=== PATIENT | female | born 1970 | race Caucasian/White ===

== ENCOUNTER → 2016-12-05 | Outpatient (CLI) | payer BC ==
--- NOTE | 2016-12-09 17:03 | DI ---
PELVIC ULTRASOUND, 12/05/2016 9:03 AM Clinical History: Menometrorrhagia. Previous Exam: None at this facility. Technique: Transvaginal scans are performed. The uterus measures approximately 50 x 65 x 80 mm. There is a bulbous appearing area in the posterior wall of the body of the uterus that has some punctate calcifications within it and this would be con sistent with a fibroid that measures approximately 25 x 25 x 30 mm. The central uterine stripe is thi ckened and measures 13 mm. There is a multiloculated cyst of the right ovary or there are 2 contiguou s cysts present. One component has the appearance of a simple cyst in the other component has the felipe earance of containing small nodules along the wall of the cyst. I was performing the procedure at the time of this exam and was not available to watch this study real-time. No color Doppler ultrasound o f this area was performed by the technologist. The remainder of the right ovary has a normal appearan ce. The left ovary is normal. There are no fluid collections or masses. Readin. There is either a bilocular cyst or there are 2 separate cysts that are contiguous in the right o vary. Once it has the appearance of a simple cyst and the other side has the appearance of a cystic l esion filled with multiple small nodules along the wall. A repeat ultrasound is recommended so that I could be present and monitor this study. This can be performed at the patient's convenience at no ad ditional charge. 2. There is a 25 x 25 x 30 mm fibroid along the posterior wall of the body of the uterus. The centra l uterine stripe measures 13 mm. 3. The left ovary is normal.
== END ==
LOC: US 08:38
PROVIDERS: ATTEND Family Medicine
DX: N92.1 Excessive and frequent menstruation with irregular cycle (principal); D25.9 Leiomyoma of uterus, unspecified; N83.201 Unspecified ovarian cyst, right side
CPT/HCPCS: 76830

== ENCOUNTER → 2016-12-13 | Outpatient (CLI) | payer BC ==
--- NOTE | 2016-12-14 15:41 | DI ---
PELVIC ULTRASOUND, 12/13/2016 2:44 PM Clinical History: Followup of a complex cyst of the right ovary. Previous Exam: 12/05/2016. Technique: Transvaginal scans are performed. The uterus measures approximately 55 x 65 x 85 mm the central uterine stripe measures 15 mm. The left ovary is unremarkable. The right ovary has 3 cystic structures. The largest simple cyst measures felipe roximately 25 mm in diameter. There is a second smaller cyst that is contiguous with and may actually be a part of the complex cyst. The complex component measures approximately 15 x 30 x 35 mm. Multipl e lobulated solid structures are visible within this complex cyst and color Doppler ultrasound shows that there is a faint vascularity within it. There are no fluid collections or masses. Readin. There is a roughly 15 x 30 x 35 mm complex cyst of the right ovary that has a multilobulated britton d component that is adherent to the wall of the cyst. This component does demonstrate vascularity wit hin it. There is a much smaller 10 mm cyst that is contiguous with the complex cyst and may actually be part of that complex. There is a third simple cyst that measures approximately 25 mm in diameter i n the right ovary. 2. The uterus is unremarkable in texture but does show thickening of the central uterine stripe at 1 5 mm. The left ovary is normal.
== END ==
LOC: US 14:42
PROVIDERS: ATTEND Family Medicine
DX: N83.291 Other ovarian cyst, right side (principal)
CPT/HCPCS: 76830

== ENCOUNTER 2016-12-18 12:37 | Emergency (ER) | payer BC ==
[2016-12-18] MEDS ORDERED: NORMAL SALINE 10 ML SYRINGE FLUSH IVP PRN (12:56)
[2016-12-18] MEDS ORDERED: fentaNYL Inj 100 MCG/2 ML VIAL IVP ONE ×2 (12:56→14:00)
[2016-12-18] MEDS ORDERED: Sodium Chloride 0.9% 1,000 ML PRIMARY IV ONE (12:56)
[2016-12-18] MEDS ORDERED: KETOROLAC 30 MG/1 ML VIAL IVP ONE (12:56)
[2016-12-18] MEDS ORDERED: ONDANSETRON 4 MG/2 ML VIAL IVP ONE (12:56)
[2016-12-18 13:08] LABS: AMYLASE 42 U/L (30-110)
--- NOTE | 2016-12-18 13:09 | PDOC ---
Abdomen/Flank HPI - General Chief Complaint: Abdomen Pain Stated Complaint: RIGHT LOWER ABDOMINAL PAIN, KNOW DX OVARIAN CYST Date Seen by Provider: 12/18/16 Time Seen by Provider: 12:55 Source: POSITIVE: Patient Exam Limitations: POSITIVE: No limitations Nurse's Notes Reviewed & Considered: Yes - History of Present Illness Initial Comments: The patient is a 46-year-old female who presents to the emergency department with right lower abdominal/pelvic pain. She was recently diagnosed with a right -sided complex ovarian cyst and is in the process of being evaluated further. In addition she has been having complaints of menstrual bleeding for the past month. Starting yesterday she had onset of right lower quadrant/pelvic pain that radiates to her right flank. She is currently rating her pain about a 9 out of 10. In addition she states that she feels lightheaded and dizzy. She had initially gone to the clinic and was seen by Dr. Santana. An IV was started and she received a fluid bolus and labs were drawn. It was apparent that the patient was experiencing considerable pain and it was felt that she would benefit for further treatment and evaluation to the emergency room. The patient subsequently is brought here. She denies any recent fevers or chills, nausea or vomiting. She reports frequent urination however denies dysuria. She does not have any vaginal discharge other than continuous bleeding with clots for the past month. She does have a history of kidney stones. She has had prior cholecystectomy, and shoulder surgery. She still has her appendix and both ovaries/uterus. - Patient Home Medications Home Medications: Home Medications Albuterol Neb Soln 0.083% 1 unit NEB [id number] #1 box 07/04/15 Albuterol/Ipratrop Neb Soln [Duoneb Neb Soln] 1 vial NEB [id number] #1 box 08/29 Pramipexole Di-HCl [Mirapex] 2 tab PO QHS #60 tab 10/01/16 Amitriptyline HCl 1 tab PO QHS #30 tab 10/14/16 Gabapentin 3 cap PO QHS #90 cap 10/14/16 Levocetirizine Dihydrochloride [Xyzal] 5 mg ORAL QD #30 tab 10/14/16 Sumatriptan 20 mg NS PRN spray 10/14/16 Verapamil HCl [Calan Sr] 180 mg PO DAILY tab 10/14/16 Tramadol HCl 1 - 2 tab PO Q6H #130 tab 11/20/16 Albuterol Sulfate [Ventolin Hfa] 1 - 2 puff INH Q4-6H PRN puff 11/25/16 Paroxetine HCl 40 mg PO DAILY #30 tab 11/25/16 0.9 % Sodium Chloride [Sodium Chloride] 2 l IV ONCE #1 bag 12/18/16 Hydrocodone/Acetaminophen [[place] 7.5-325 Tablet] 1 - 2 each PO Q6H PRN #20 tablet 12/18/16 Mometasone/Formoterol [Dulera 100 Mcg/5 Mcg Inhaler] 13 gm IH BID 12/18/16 - Patient Allergies Allergies/Adverse Reactions: Allergies Allergy/AdvReac Type Severity Reaction Status Date / Time hydromorphone HCl Allergy SHORTNESS Verified 12/18/16 12:49 [From Dilaudid] OF BREATH codeine [Codeine] AdvReac Intermediate NAUSEA Verified 12/18/16 12:49 levofloxacin AdvReac Intermediate VOMITING Verified 12/18/16 12:49 oxycodone HCl [From Percocet] AdvReac Intermediate NAUSEAA Verified 12/18/16 12: 49 VOMITING ropinirole HCl [From Requip] AdvReac Intermediate VOMITING Verified 12/18/16 12: 49 diphenhydramine HCl AdvReac ITCHING Verified 12/18/16 12:49 [From Benadryl] ketorolac tromethamine AdvReac ITCHING Verified 12/18/16 12:49 [From Toradol] metoclopramide HCl AdvReac ITCHING Verified 12/18/16 12:49 [From Reglan] Past Medical History - heen HEENT History: Denies History Additional HEENT History: RECURRING SINUS INFECTIONS Cardiovascular History: Hyperlipidemia Respiratory History: Asthma Gastrointestinal History: Gallbladder Disease Genitourinary History: Kidney Stones Endocrine History: Denies History Musculoskeletal History: Back Pain Prosthesis or Implant: No Additional Musculoskeletal History: RESTLESS LEG Neurological History: Migraines Additional Neurological History: CONCUSSION (10/27&10/30), RESTLESS LEG SYNDROME Blood Disorders: Denies History Psychiatric History: Depression History of Sexually Transmitted Diseases: No Cancer History: Denies History History of MDRO: No History of Other Communicable Diseases: Yes (MONO IN 2013) Alcohol Use: Rarely Substance Use Type: None Previous Surgical History: Yes Type / Date of Surgery: c section, left shoulder, LEFT CARPAL TUNNEL, RIGHT KNEE Anesthesia Reactions: No (PONV) Malignant Hyperthermia: No Significant Family History: Asthma Past Medical History Reviewed: Reviewed - No Changes ROS - Limitations ROS Limitations: No Limitations Constitution: DENIES: Chills, Fever Cardiovascular: REPORTS: Denies Cardiac Symptoms Respiratory: REPORTS: Denies Resp Symptoms Neurological: REPORTS: Denies Neuro Symptoms Gastrointestinal: DENIES: Nausea, Vomitting, Diarrhea Musculoskeletal: REPORTS: Denies MS Symptoms Genitourinary: REPORTS: Flank Pain, Other (Vaginal bleeding 1 month) Eyes: REPORTS: Denies Symptoms ENT: REPORTS: Denies Symptoms Skin: DENIES: Rash Abdominal/Flank Pain PE - General Appearance General Appearance: POSITIVE: Alert, Cooperative, No Acute Distress - HEENT HEENT: POSITIVE: Head Inspection Nml, Eyes Inspection Nml, Ears Inspection Nml, Pharynx Inspect. Nml - Neck Neck: POSITIVE: Normal Inspection. NEGATIVE: Lymphadenopathy - Respiratory Respiratory: POSITIVE: No Respiratory Distress, Breath Sounds Normal - Cardiovascular Cardiovascular: POSITIVE: Regular Rate and Rhythm, Heart Sounds Normal Peripheral Pulses: Dorsalis-pedis (R): 2+, Dorsalis-pedis (L): 2+ - Abdomen Abdomen: Soft: (All Quadrants), Normal Bowel Sounds: (All Quadrants), No Guarding: (All Quadrants), No Rebound: (All Quadrants) Additional Abdominal Details: She does have tenderness primarily in the right lower quadrant without rebound tenderness, right-sided CVA tenderness as well - Back Back: POSITIVE: CVA Tenderness (R) - Skin Skin: POSITIVE: Intact, No Rash - Extremities Extremity: Normal ROM: (All Extremities), Normal Inspection: (All Extremities) - Neurological Neurological: POSITIVE: Oriented X3, Motor Normal, Sensation Normal Abdomen Progress - Results Reviewed by me Xrays/CTs/US Reviewed by me: Yes Discussed with Radiologist: Yes Radiology Findings: CT scan of the abdomen and pelvis shows no acute findings per radiologist with normal appendix and no evidence of kidney stone. She does have the right ovarian cyst which appears basically unchanged from previous. Repeat ultrasound of the uterus and ovaries reveals good blood flow to both ovaries with no evidence of ovarian torsion. Lab Results Reviewed: Yes Lab Results:: Laboratory Results 12/18/16 12/18/16 Range/Units 11:53 14:40 C-Reactive Protein 0.6 (0.0-0.9) mg/dL Amylase 42 (30-110) U/L Lipase 90 (23-300) IU/L TSH 1.29 (0.2700-4.2000) uIU/mL Serum HCG, Qual Negative Ur Collection Type Clean catch urine Urine Color Yellow Urine Clarity Clear (CLEAR) Urine pH 5.5 (5.0-8.5) Ur Specific [place] 1.025 (1.005-1.030) Urine Protein Negative (NEG) mg/dl Urine Glucose (UA) Negative (NEG) mg/dL Urine Ketones Trace (NEG) Urine Occult Blood Trace-intact H (NEG) Urine Nitrate Negative (NEG) Urine Bilirubin Negative (NEG) Urine Urobilinogen 0.2 (0.2) EU/dL Ur Leukocyte Esterase Negative (NEG) Urine RBC 0 (NONE) /hpf Urine WBC 0 (NONE) Ur Squamous Epith Cells Few (NONE) Ur Renal Epithelial Cell None (NONE) Urine Crystals None Urine Bacteria None (NONE) Urine Casts None (NONE) Urine Mucus Few (NONE) Urine Trichomonas None (NONE) Urine Yeast None (NONE) Ur Culture Indicated? Culture not set - Patient's Progress MDM / ED Course: IV had been established per Dr. Santana at the clinic and she had artery received 850 mL as a bolus there. The patient is stating that her pain is 9 out of 10. She was given Toradol 30 mg IV, fentanyl 50 g IV and Zofran 4 mg IV for pain. A CT of the abdomen and pelvis was ordered to rule out other potential etiologies for her right lower quadrant/pelvic/flank pain. After CT the patient continued to have significant pain and received a second dose of fentanyl 100 g IV. She really did not get significant pain relief and received Ativan 1 mg IV. Results of her initial CT scan revealed no evidence of acute findings with a normal appendix and no evidence of kidney stone. She has the right ovarian cyst which had been noted previously with no obvious signs of significant bleeding or free fluid. Because of her ongoing continued pain and ultrasound was ordered to rule out torsion. This showed good blood flow to both ovaries and actually the cyst on the right side appeared to have lessened in size according to the tech. At this point it seems possible that the patient may be having pain related to a small amount of bleeding from the ovarian cyst. Endometriosis cannot be ruled out as well. She is unable to tolerate Toradol secondary to worsening symptoms of restless legs. She does however tolerate ibuprofen and naproxen. She was having continued pain despite all of the medication given here in the emergency room so she was given a dose of morphine 4 mg IV as well as naproxen 500 mg by mouth. Her pain settled down to the point where she felt like she could go home. I did discuss the patient' s findings with Dr. Santana and she will see the patient in follow-up once the remainder of her blood work is done. The patient was discharged home and advised to take Aleve 2 tablets twice a day as well as [place] 7.5/325 one to 2 every 6 hours as needed for pain. She will return to the emergency room if increased pain, fever, any worsening or change in symptoms. - Consult Counseled: POSITIVE: Patient, Family, RE: Lab Results, RE: Radiology Results, RE : DX, RE: Need for F/U Patient Care Time - Estimated PCT Patient Care Time (In Minutes): 55 Vital Signs - Recent Vital Signs Vital Signs: Vital Signs (Last 8 hours) Temp Pulse Resp BP Pulse Ox 12/18/16 12:40 97.2 F 65 18 128/72 100 - VS Reviewed Vital Signs Reviewed: Yes Discharge Clinical Impression: Abdominal pain, Ovarian cyst Condition: Stable Prescriptions / Orders: Hydrocodone/Acetaminophen [[place] 7.5-325 Tablet] 1 - 2 each PO Q6H PRN #20 tablet PRN Reason: Pain Patient Instructions Given at Discharge: Ovarian Cyst (ED), Acute Abdominal Pain (ED) Additional Instructions: The CAT scan showed a normal appendix and no evidence of kidney stone. There is still a small cyst on the right ovary. Ultrasound revealed good blood flow to the ovary. Your blood work is all essentially unremarkable and there is no evidence of anemia or infection. At this point the most likely cause of the pain is a small amount of bleeding related to the ovarian cyst causing pain. Recommend Aleve 2 tablets twice a day with food as needed for pain. You've also been prescribed hydrocodone 7.5/325 one to 2 every 6 hours as needed for pain. Return to the emergency room if increased pain, fever, worsening or change in symptoms. Recommend follow-up with Dr. Santana/possible gynecology referral. Follow Up With: SHOLA SANTANA [Primary Care Provider] -
[2016-12-18 14:39] LABS: BILIRUBIN,URINE NEGATIVE (NEG); CLARITY,URINE CLEAR (CLEAR); GLUCOSE, URINE (UA) NEGATIVE (NEG); LEUKOCYTE ESTERASE ,URINE NEGATIVE (NEG); NITRATE,URINE NEGATIVE (NEG); OCCULT BLOOD,URINE Trace-intact (NEG); PH,URINE 5.5 (5.0-8.5); PROTEIN,URINE NEGATIVE (NEG); UROBILINOGEN,URINE 0.2 EU/dL (0.2)
[2016-12-18 14:42] LABS: URINE SAMPLE TYPE CLEAN CATCH URINE
[2016-12-18 14:43] LABS: RBC,URINE 0 /hpf; SQUAMOUS EPITHELIAL CELL,UR FEW; WBC,URINE 0
[2016-12-18] MEDS ORDERED: LORazepam 2 MG/1 ML VIAL IVP ONE (15:10)
[2016-12-18] MEDS ORDERED: HYDROcodone-APAP 5 MG -325 MG TABLET PO ONE (15:31)
--- NOTE | 2016-12-18 15:58 | DI ---
CT ABDOMEN SCAN WITH IV CONTRAST, 12/18/2016 12:57 PM : Clinical History: Abdominal pain. Previous Exam: 09/23/2015. Scans are performed from the lower lung bases through the liver and kidneys with IV contrast. 95 ml o f Isovue 300 was injected IV. No rectal or oral contrast was ordered. The lung bases are clear. The liver is normal. The gallbladder is not visualized and although there a re no metallic clips, the patient still is probably post cholecystectomy. There is no abnormality of the spleen, pancreas, and adrenal glands. Both kidneys are normal in size, shape, position and contou r. There is no hydronephrosis or hydroureter. No renal or ureteral calculi are present. There are no abnormal retrocrural or periaortic nodes. No ascites is present. READING: Normal CT abdomen scan. CT PELVIS SCAN WITH IV CONTRAST, 12/18/2016 12:57 PM: Clinical History: See above. Previous Exam: 09/23/2015. Scans are performed from just superior to the umbilicus to the symphysis pubis with IV contrast. This is the same bolus of contrast used for the CT scans of the abdomen. Scans through the lower abdomen and pelvis show no masses or abnormal fluid collections. There is no adenopathy. The appendix is normal. The small bowel, terminal ileum, and ileocecal valve are normal. The colon is also normal. There are no hernias. The uterus and left ovary are normal. There is a roug hly 25 x 25 x 30 mm low-density area in the right ovary consistent with a cyst or multiple small cyst s. This appearance is similar to the previous exam. READING: Normal CT scan of the pelvis.
--- NOTE | 2016-12-18 16:21 | DI ---
PELVIC ULTRASOUND, 12/18/2016 2:20 PM Clinical History: Right lower quadrant pain. Pelvic pain. Previous Exam: 12/13/2016. Technique: Transvaginal scans are performed. The uterus is unchanged from the earlier study. The right ovary shows the venous and arterial flow. T he complex mass in the adjacent cyst are similar in appearance although the projections are not the s sourav. The left ovary has a small roughly 8 mm cyst that is perhaps slightly larger than on the previou s study. There are no fluid collections or masses. Readin. The overall size of the right ovary and the cystic and complex cystic lesion are unchanged. The p rojections are slightly different but there has been no significant interval change. There is no evid ence of torsion of the right ovary. 2. The uterus and left ovary have not changed. No free fluid collections are present.
[2016-12-18] MEDS ORDERED: MORPHINE SULFATE 4 MG/1 ML IVP ONE (16:44)
[2016-12-18] MEDS ORDERED: Naproxen Tab 500 MG TAB PO ONE (16:44)
[2016-12-18 19:15] VITALS: RESP 18; TEMP 97.2
== END 2016-12-18 17:36 | disposition home or self-care (01) ==
LOC: ER 12:37
DX: N83.201 Unspecified ovarian cyst, right side (principal); R10.31 Right lower quadrant pain
CPT/HCPCS: 74177; 76830; 81001; 81003; 82150; 83690; 84443; 84703; 86140; 96374; 96375; 96376; 99284 ×2; J1885; J3010; J2060; J2270; J2405; J7030

== ENCOUNTER → 2016-12-18 | Outpatient (CLI) | payer BC ==
[2016-12-18 12:39] LABS: HEMATOCRIT 46.2 % (37.0-47.0); HEMOGLOBIN 15.1 g/dL (12.0-16.0); MEAN CORPUSCULAR HEMOGLOBIN 27.4 PG (27-31); MEAN CORPUSCULAR HGB CONC 32.7 g/dL (33-37); MEAN PLATELET VOLUME 10.2 FL (7.4-12.2); RDW COEFFICIENT OF VARIATION 15.2 % (11.5-14.5); RED BLOOD COUNT 5.51 10^6/uL (4.20-5.40); WHITE BLOOD COUNT 7.36 10^3/uL (4.8-10.8)
[2016-12-18 13:02] LABS: ASPARTATE AMINO TRANSFERASE 24 IU/L (8-39); BILIRUBIN,TOTAL 0.4 mg/dL (0.3-1.2); BLOOD UREA NITROGEN 16 mg/dL (7-22); BUN/CREATININE RATIO 17.77 (6-20); CALCIUM 9.6 mg/dL (8.7-10.7); CHLORIDE 102 meq/L (98-112); CREATININE 0.9 mg/dL (0.50-1.20); EST GLOMERULAR FILTRATION > 60 (>60 ml/min/1.73m(2)); GLUCOSE 79 mg/dL (78-110); POTASSIUM 4.8 meq/L (3.8-5.2); SODIUM 136 meq/L (135-145); TOTAL PROTEIN 7.5 g/dL (6.1-8.0)
== END ==
LOC: MOB LAB 11:15
PROVIDERS: ATTEND Family Medicine
DX: R42 Dizziness and giddiness (principal); N92.0 Excessive and frequent menstruation with regular cycle; R30.0 Dysuria
CPT/HCPCS: 36415; 80053; 82728; 83540; 83550; 85027; 85610

== ENCOUNTER → 2016-12-18 | Outpatient (CLI) | payer BC | LOC: LAB 10:34 | PROVIDERS: ATTEND Family Medicine | DX: R93.5 Abnormal findings on diagnostic imaging of other abdominal regions, including retroperitoneum (principal) | CPT/HCPCS: 36415; 86304 ==

== ENCOUNTER 2016-12-20 14:53 | Outpatient (CLI) | payer BC ==
[~2016-12-20 14:53] MED LIST: ACETAMINOPHEN 500 MG TABLET PO PRN; diphenhydrAMINE 25 MG CAPSULE PO PRN
[2016-12-20] MEDS ORDERED: SODIUM CHLORIDE 0.9% IV ONE (15:00)
[2016-12-20] MEDS ORDERED: IRON SUCROSE IV ONE (15:00)
[2016-12-20] MEDS: NORMAL SALINE 10 ML SYRINGE FLUSH IVP PRN ×2 (15:05→15:50)
[2016-12-20 15:24] VITALS: RESP 14; TEMP 97.6
== END 2016-12-20 15:50 | disposition home or self-care (01) ==
LOC: IV THERAPY 14:53
PROVIDERS: ATTEND Emergency Medicine
DX: G25.81 Restless legs syndrome (principal); R53.83 Other fatigue
CPT/HCPCS: 96365; 99211; J1756; J7050

== ENCOUNTER 2017-01-02 08:50 | Observation (INO) | payer BC ==
[~2017-01-02 08:50] MED LIST changes: -ACETAMINOPHEN 500 MG TABLET PO PRN; +Acetaminophen 1000mg Inj 1,000 MG in Premix 1 BAG IV ONE; +Acetaminophen 1000mg Inj 100 ML IV ONE; +HYDROmorphone 2 MG/1 ML IVP PRN; +IPRATROPIUM/ALBUTEROL SULFATE 3 ML NEB NEB ONE; +LIDOCAINE W/ SODIUM BICARB 0.5 ML SYR ONE; +Lactated Ringers 1,000 ML PRIMARY IV SCH; +Lactated Ringers 2,000 ML PRIMARY IV ONE; +NORMAL SALINE 10 ML SYRINGE FLUSH IVP PRN; +ONDANSETRON 4 MG/2 ML VIAL IVP PRN; +Ondansetron ODT Tab 8 MG TAB PO PRN; +Prochlorperazine Edisylate Inj 10mg/2ml vial IVP PRN; +SCOPOLAMINE HYDROBROMIDE 1.5 MG - 1 EACH PATCH TRANSDERM ONE; +Sodium Chloride 0.9% 100 ML IV ONE; -diphenhydrAMINE 25 MG CAPSULE PO PRN
[2017-01-02 09:07] LABS: BILIRUBIN,URINE NEGATIVE (NEG); CLARITY,URINE CLEAR (CLEAR); GLUCOSE, URINE (UA) NEGATIVE (NEG); LEUKOCYTE ESTERASE ,URINE NEGATIVE (NEG); NITRATE,URINE NEGATIVE (NEG); OCCULT BLOOD,URINE NEGATIVE (NEG); PH,URINE 6.5 (5.0-8.5); PROTEIN,URINE NEGATIVE (NEG); UROBILINOGEN,URINE 0.2 EU/dL (0.2)
[2017-01-02 09:10] LABS: URINE SAMPLE TYPE CLEAN CATCH URINE; URINE SPECIFIC GRAVITY - MAN 1.015
[2017-01-02] MEDS ORDERED: DEXAMETHASONE PF 10 MG/1 ML VIAL ONE (09:18)
[2017-01-02] MEDS ORDERED: MIDAZOLAM 5 MG/1 ML ONE (09:23)
[2017-01-02] MEDS ORDERED: SUFENTANIL 50 MCG/1 ML ONE (09:23)
[2017-01-02] MEDS ORDERED: Sodium Chloride 0.9% vial 10 ML ONE (09:24)
[2017-01-02] MEDS ORDERED: LIDOCAINE MPF 2% - 5 ML (20 MG/1 ML) ONE (09:25)
[2017-01-02] MEDS ORDERED: ROCURONIUM 10 MG/1 ML - 5 ML VIAL IVP ONE (09:27)
[2017-01-02] MEDS: fentaNYL Inj 100 MCG/2 ML VIAL IVP PRN ×4 (09:55→13:25)
[2017-01-02 10:02] LABS: HEMATOCRIT 43.5 % (37.0-47.0); HEMOGLOBIN 14.4 g/dL (12.0-16.0)
[2017-01-02] MEDS ORDERED: BUPIVACAINE 0.25% W/ EPI - 10 ML VIAL ONE (10:49)
[2017-01-02] MEDS ORDERED: LIDOCAINE HCL 2 % 10 ML JELLY URO-JECT TOPICAL ONE ×2 (12:14→12:15)
[2017-01-02] MEDS ORDERED: NEOSTIGMINE 1 MG/1 ML - 10 ML ONE (12:41)
[2017-01-02] MEDS ORDERED: GLYCOPYRROLATE 0.2 MG/1 ML VIAL ONE (12:41)
[2017-01-02] MEDS ORDERED: Ondansetron ODT Tab 8 MG TAB PO PRN (12:46)
[2017-01-02] MEDS ORDERED: oxyCODONE-ACETAMINOPHEN 5-325 TAB PO PRN (12:46)
--- NOTE | 2017-01-02 12:52 | OB.OP.NOTE ---
Operative Report Surgeon: Beatriz Lay Out Inspector: Rohith Catalan MD Anesthesia Type: General Anesthesia Provider: Cecily Guerra CRNA Surgery Date: 01/02/17 Preoperative Diagnosis: MMR/Dysmenorrhea/CPP Postoperative Diagnosis: Same with pelvic adhesions Procedure: da Ryder Hysterectomy/BSO/Extensive RHINA/Cystoscopy Estimated Blood Loss (mL): 125 Fluids: 2300 Complications: None Findings at Surgery: Extensive and dense adhesions of omentum to the anterior abdominal wall. Normal appearing uterus, tubes and ovaries. No visible evidence of bowel, bladder, or ureter injury. At cysto, both ureters ejected urine. No bladder damage was seen. Indications for the Procedure: MMR/Dysmenorrhea/CPP Description of Procedure: See dictated operative report. Plan: Routine post op care and discharge to home.
[2017-01-02] MEDS ORDERED: fentaNYL Inj 250 MCG/5 ML VIAL ONE (13:28)
[2017-01-02] MEDS ORDERED: Phenazopyridine Tab 200 MG TAB PO ONE (13:30)
[2017-01-02] MEDS: fentaNYL Inj 250 MCG/5 ML VIAL ONE ×3 (13:40→16:05)
[2017-01-02] MEDS: IBUPROFEN 800 MG TABLET PO PRN (13:45)
[2017-01-02] MEDS: HYDROcodone-APAP 7.5 MG-325 MG TABLET PO PRN ×4 (14:20→23:59)
[2017-01-02] MEDS ORDERED: SUMATRIPTAN 20 MG NS PRN (16:00)
[2017-01-02] MEDS: MORPHINE SULFATE 4 MG/1 ML IVP PRN ×4 (17:05→21:17)
[2017-01-02] MEDS ORDERED: MORPHINE SULFATE 10 MG/1 ML ONE (17:07)
[2017-01-02] MEDS ORDERED: MOMETASONE IH SCH (21:00)
[2017-01-02] MEDS ORDERED: FORMOTEROL IH SCH (21:00)
[2017-01-02] MEDS ORDERED: PRAMIPEXOLE 0.5 MG PO SCH (21:00)
[2017-01-02] MEDS ORDERED: DOCUSATE 100 MG CAPSULE PO SCH (21:00)
[2017-01-02] MEDS ORDERED: AMITRIPTYLINE 25 MG TABLET PO SCH (21:00)
[2017-01-02] MEDS ORDERED: GABAPENTIN 300 MG CAPSULE PO SCH (21:00)
[2017-01-02] MEDS: NORMAL SALINE 10 ML SYRINGE FLUSH IVP PRN (21:18)
[2017-01-03] MEDS: MORPHINE SULFATE 4 MG/1 ML IVP PRN ×2 (02:16→06:04)
[2017-01-03] MEDS: NORMAL SALINE 10 ML SYRINGE FLUSH IVP PRN (02:17)
[2017-01-03] MEDS: HYDROcodone-APAP 7.5 MG-325 MG TABLET PO PRN (04:48)
[2017-01-03 07:19] VITALS: RESP 18; TEMP 97.8
--- NOTE | 2017-01-03 07:54 | DCSUMMARY ---
Hospitalization Summary Admit Date: 01/02/17 Discharge Date: 01/03/17 Primary Diagnosis:: MMR/Dysmenorrhea/CPP Hospital Course: The patient had a da Ryder hysterectomy/BSO/RHINA/Cysto without complication. She was admitted for observation overnight due to pain management issues. She is doing well this AM, though still c/o the right flank pain she had before surgery. She has a h/o kidney stones, and we discussed this as the likely etiology for her pain. Recommend f/u with urology if this does not improve. She was discharged to home in good condition. Exam - Vitals Vital Signs: Vital Signs Temperature 97.8 F Temperature Source Temporal Artery Scan Pulse Rate [Pulse Oximeter] 85 Pulse Rate 85 Respiratory Rate 18 Blood Pressure [Right Arm] 114/63 Blood Pressure 134/84 Pulse Ox 95 Oxygen Flow Rate 2 Oxygen Delivery Method Room Air Height 5 ft 7 in Weight 225 lb
[2017-01-03] MEDS: IBUPROFEN 800 MG TABLET PO PRN (08:08)
[2017-01-03] MEDS ORDERED: LORATADINE 10 MG TABLET PO SCH (09:00)
[2017-01-03] MEDS ORDERED: VERAPAMIL 240 MG PO SCH (09:00)
[2017-01-03] MEDS ORDERED: PARoxetine Tab 20 MG TAB PO SCH (09:00)
== END 2017-01-03 08:31 | disposition home or self-care (01) ==
LOC: SDSC 08:50 → MED/SURG 16:00
PROVIDERS: ADMIT Obstetrics & Gynecology; ATTEND Obstetrics & Gynecology
DX: N92.1 Excessive and frequent menstruation with irregular cycle (principal); N94.6 Dysmenorrhea, unspecified
CPT/HCPCS: 52000; 58552; 81003; 84703; 85014; 85018; 94640; 94761; 96374; A4216; J0131; J0694; J2270; J2704; J3010; J1100; J2001; J2250; J2710; J3490; J7050; J7120

== ENCOUNTER → 2017-02-03 | Outpatient (CLI) | payer BC ==
--- NOTE | 2017-02-03 14:22 | DI ---
US BRST U/L OR B/L,02/03/2017 12:49 PM: Clinical History: Abnormal mammogram. Previous Exam: Screening mammogram performed January 29, 2017 Findings: Physical examination revealed no palpable mass. Sonographic evaluation reveals a 1.4 cm simple cyst within the inferior right breast on the 6:00 axis approximately 6 cm from the nipple corresponding with the abnormality within the right breast on the mammogram. Impression: Well-circumscribed mass on the mammogram corresponds with a 1.4 cm simple cyst. BI-RADS: 2. Benign finding(s). Benign findings.
== END ==
LOC: US 12:43
PROVIDERS: ATTEND Nurse Practitioner Family
DX: R92.8 Other abnormal and inconclusive findings on diagnostic imaging of breast (principal); N60.01 Solitary cyst of right breast
CPT/HCPCS: 76641

== ENCOUNTER 2017-03-11 17:16 | Emergency (ER) | payer BC ==
[2017-03-11 17:34] VITALS: TEMP 97.4
[2017-03-11] MEDS ORDERED: DEXAMETHASONE PF 10 MG/1 ML VIAL IV ONE (17:37)
[2017-03-11] MEDS ORDERED: NORMAL SALINE 10 ML SYRINGE FLUSH IVP PRN (17:37)
[2017-03-11] MEDS ORDERED: Sodium Chloride 0.9% 1,000 ML PRIMARY IV ONE (17:37)
[2017-03-11] MEDS ORDERED: MEPERIDINE HCL/PF 100 MG/1 ML INJECTION IVP ONE (17:39)
[2017-03-11] MEDS ORDERED: ONDANSETRON 4 MG/2 ML VIAL IVP ONE (17:40)
[2017-03-11] MEDS ORDERED: SUMAtriptan Succinate 6 MG/0.5 ML SUBCUT ONE ×2 (18:54→19:00)
[2017-03-11] MEDS ORDERED: Meperidine Inj 50 MG/ML CARPUJECT IVP ONE (19:00)
[2017-03-11 20:08] VITALS: RESP 16
--- NOTE | 2017-03-12 06:03 | PDOC ---
Headache HPI - General Chief Complaint: Headache Stated Complaint: migraine since late Friday Date Seen by Provider: 03/11/17 Time Seen by Provider: 17:25 Source: POSITIVE: Patient Exam Limitations: POSITIVE: No limitations Nurse's Notes Reviewed & Considered: Yes - History of Present Illness Initial Comments: The patient is a 46-year-old female. She presents to the emergency room complaining of a 2 day history of a migraine headache. Her headache is right sided which is typical for her migraines. She states that she has had a history of migraine headaches for the past 20 years. Today's headache is identical to her previous episodes. No history of head trauma. She states that previous CT scans and MRI scans of the head have been negative. Patient states she is intolerant of Requip, Benadryl, oxycodone, Dilaudid, codeine, Reglan, and levofloxacin. She also states she is intolerant of Toradol. Present medications include verapamil, gabapentin, Mirapex, tramadol, amitriptyline, Paxil, Ventolin. No fevers. No neck pain. No focal sensory or motor symptoms. Body Location Affected: REPORTS: Head Timing: REPORTS: Constant Duration: >24 hours (Approximately 24 hours) Severity: Moderate Quality: REPORTS: "Pain", Throbbing Context: DENIES: CO Exposure, Tick Bite, Insect Bite, Recent Head Injury, Other Associated Symptoms: REPORTS: [place] Preceding, Typical of Prior Aura(s), Nausea. DENIES: Fever, Chills, Sweating, Problems with Vision, Sensitivity to Light, Visual Disturb Preceding, Vomiting, Neck Pain, Stiffness, Speech Problems , Weakness, Trouble Walking, Tingling, Numbness, Dizziness, Lightheadedness, Other Exacerbated by: REPORTS: Light, Noise Any Prior Injuries Related to Current Complaint?: No - Patient Home Medications Home Medications: Home Medications Albuterol Neb Soln 0.083% 1 unit NEB [id number] #1 box 07/04/15 Albuterol/Ipratrop Neb Soln [Duoneb Neb Soln] 1 vial NEB Q4-6HRSPRN #1 box 08/29 Pramipexole Di-HCl [Mirapex] 2 tab PO QHS #60 tab 10/01/16 Amitriptyline HCl 1 tab PO QHS #30 tab 10/14/16 Gabapentin 3 cap PO QHS #90 cap 10/14/16 Levocetirizine Dihydrochloride [Xyzal] 5 mg ORAL QD #30 tab 10/14/16 Sumatriptan 20 mg NS PRN spray 10/14/16 Paroxetine HCl 40 mg PO DAILY #30 tab 11/25/16 Mometasone/Formoterol [Dulera 100 Mcg/5 Mcg Inhaler] 13 gm IH BID 12/18/16 Estradiol 1 tab PO DAILY #30 tab 02/03/17 Albuterol Sulfate [Ventolin Hfa] 1 - 2 puff INH Q4-6H PRN #1 puff 03/11/17 Tramadol HCl 1 - 2 tab PO Q6H PRN #130 tab 03/11/17 Verapamil HCl [Calan Sr] 180 mg PO DAILY #30 tab 03/11/17 - Patient Allergies Allergies/Adverse Reactions: Allergies Allergy/AdvReac Type Severity Reaction Status Date / Time hydromorphone HCl Allergy SHORTNESS Verified 03/11/17 17:20 [From Dilaudid] OF BREATH codeine [Codeine] AdvReac Intermediate NAUSEA Verified 03/11/17 17:20 levofloxacin AdvReac Intermediate VOMITING Verified 03/11/17 17:20 oxycodone HCl [From Percocet] AdvReac Intermediate NAUSEAA Verified 03/11/17 17: 20 VOMITING ropinirole HCl [From Requip] AdvReac Intermediate VOMITING Verified 03/11/17 17: 20 diphenhydramine HCl AdvReac ITCHING Verified 03/11/17 17:20 [From Benadryl] ketorolac tromethamine AdvReac ITCHING Verified 03/11/17 17:20 [From Toradol] metoclopramide HCl AdvReac ITCHING Verified 03/11/17 17:20 [From Reglan] Past Medical History - heen HEENT History: Denies History Additional HEENT History: RECURRING SINUS INFECTIONS Cardiovascular History: Denies History Respiratory History: Asthma Gastrointestinal History: Gallbladder Disease, Gallbladder Disease Genitourinary History: Kidney Stones Endocrine History: Denies History Musculoskeletal History: Back Pain Prosthesis or Implant: No Additional Musculoskeletal History: RESTLESS LEG Neurological History: Migraines, Motion Sickness Additional Neurological History: CONCUSSION (10/27&10/30), RESTLESS LEG SYNDROMEMIGRAINE 5 MONTHS AGO Blood Disorders: Denies History Psychiatric History: Depression, Anxiety Disorders History of Sexually Transmitted Diseases: No Female Reproductive History: Denies History LMP: hyster Obstetrical History: Denies History Cancer History: Denies History In Past Year Been Physically Harmed or Verbally Threatened: No History of MDRO: No History of Other Communicable Diseases: Yes (MONO IN 2014) Tobacco Use: Never Smoker Alcohol Use: Rarely Substance Use Type: None Previous Surgical History: Yes Type / Date of Surgery: c section, left shoulder, LEFT CARPAL TUNNEL, RIGHT KNEE / KHLOE/ Anesthesia Reactions: No (PONV) Malignant Hyperthermia: No Significant Family History: Asthma Past Medical History Reviewed: Reviewed - No Changes ROS - Limitations ROS Limitations: No Limitations Constitution: REPORTS: Denies Symptoms Cardiovascular: REPORTS: Denies Cardiac Symptoms Respiratory: REPORTS: Denies Resp Symptoms Neurological: REPORTS: Headache Gastrointestinal: REPORTS: Denies GI Symptoms Endocrine: REPORTS: Denies Symptoms Musculoskeletal: REPORTS: Denies MS Symptoms Genitourinary: REPORTS: Denies Symptoms Eyes: REPORTS: Denies Symptoms ENT: REPORTS: Denies Symptoms Skin: REPORTS: Denies Skin Symptoms Lympathic: REPORTS: Denies Lympathic Symptoms Immunologic: POSITIVE: Denies Symptoms Psychiatric: POSITIVE: Denies Psych Symptoms Headache Exam - General Appearance General Appearance: POSITIVE: Alert, Cooperative, No Acute Distress, No Evidence of Trauma - HEENT Head / Face: POSITIVE: Atraumatic, Normal Inspection, No Facial Swelling Eyes: POSITIVE: Inspection Normal, PERRL, EOM's Intact, Eyelids Uninjured, Conjunctivae Uninjured, No Nystagmus, No Globe Trauma, Sclera Normal, Normal Fundoscopic Exam, No Papilledema Ears: POSITIVE: Ears Normal Inspection, TM Normal Inspection, Auricle Normal, External Canal Normal Nose: POSITIVE: Inspection Normal, No Apparent Trauma, Nares Normal, No CSF Leak Oropharynx: POSITIVE: External Inspection Nml, Pharynx Inspect. Nml, Airway Intact, Voice Normal, Moist Mucous Membranes, No Oral Injury, Lips Normal, Gums Normal, No Drooling, No Thrush, Normal Gag Reflex Dental: POSITIVE: No Dental Injury - Pupil Size Pupil Size: 4 mm: Bilateral (PERRLA) - Neck Neck: POSITIVE: Normal Inspection, Supple - Respiratory / CVS Respiratory / CVS: POSITIVE: Chest Non-Tender, No Respiratory Distress, Heart Sounds Normal, Regular Rate/Rhythm, Breath Sounds Normal Peripheral Pulses: Radial (R): 2+, Radial (L): 2+ - Abdomen Abdomen: Soft: (All Quadrants), Normal Bowel Sounds: (All Quadrants), Denies Tenderness: (All Quadrants), No Splenomegaly: (All Quadrants), No Hepatomegaly: (All Quadrants), No Guarding: (All Quadrants), No Rebound: (All Quadrants), No Palpable Pulse: (All Quadrants), No Palpabale Mass: (All Quadrants), No Distention: (All Quadrants), No Rigidity: (All Quadrants) - Skin Skin: POSITIVE: Intact, Normal Palpation - Extremities Extremity: Non-Tender: (All Extremities), Normal ROM: (All Extremities), Normal Inspection: (All Extremities) - Neuro / Psych Higher Functions: POSITIVE: Alert, Oriented x3, Normal Speech, Mood Appropriate , Affect Appropriate Cranial Nerves: POSITIVE: Normal As Tested, No Evidence of Acute CVA Cerebellar: POSITIVE: Normal As Tested Sensorimotor: POSITIVE: No Motor Deficits, No Sensory Deficits, Reflexes Normal Images - Head Head: 1 - Headache 2 - Headache Headache Progress - Patient's Progress Pain Medication Addressed: POSITIVE: Yes (Patient given 100 mg of Demerol IV along with 4 mg of Zofran. Patient later given another 50 mg of Demerol IV. Patient also given 100% oxygen by nonrebreather mask. Headache essentially resolved on discharge.) School/Work Release Addressed: POSITIVE: No Re-Examine Time:: 19:40 Re-Examine Comment: Headache essentially resolved on discharge. Status: POSITIVE: Improved, Pain Relieved - Consult Counseled: POSITIVE: Patient, RE: DX, RE: Need for F/U Patient Care Time - Estimated PCT Patient Care Time (In Minutes): 45 Vital Signs - VS Reviewed Vital Signs Reviewed: Yes Discharge Clinical Impression: Migraine Discharge Disposition: Discharged to Home Condition: Stable Patient Instructions Given at Discharge: Migraine Headache (ED) Additional Instructions: Cool home and go to bed. Rest. Continue present medication. Follow-up with your primary care provider. Return here as necessary. Follow Up With: SHOLA SANTANA [Primary Care Provider] - (Return as necessary. Follow-up with your primary care provider.)
== END 2017-03-11 19:58 | disposition home or self-care (01) ==
LOC: ER 17:16
DX: G43.009 Migraine without aura, not intractable, without status migrainosus (principal); R11.0 Nausea
CPT/HCPCS: 96361; 96372; 96374; 96375; 96376; 99283; 99284; J1100; J2175; J2405; J3030; J7030

== ENCOUNTER 2017-03-12 14:55 | Emergency (ER) | payer BC ==
[2017-03-12] MEDS ORDERED: Sodium Chloride 0.9% 1,000 ML PRIMARY IV ONE ×2 (15:08→17:55)
[2017-03-12] MEDS ORDERED: ONDANSETRON 4 MG/2 ML VIAL IVP ONE (15:08)
[2017-03-12] MEDS ORDERED: DEXAMETHASONE PF 10 MG/1 ML VIAL IM ONE (15:08)
[2017-03-12] MEDS ORDERED: NORMAL SALINE 10 ML SYRINGE FLUSH IVP PRN (15:08)
[2017-03-12] MEDS ORDERED: fentaNYL Inj 100 MCG/2 ML VIAL IVP ONE (15:09)
[2017-03-12 15:47] LABS: BASOPHILS # (AUTO) 0.01 10*3/UL; BASOPHILS % (AUTO) 0.1 % (0-1); EOSINOPHILS # (AUTO) 0 10*3/UL; EOSINOPHILS % (AUTO) 0 % (0-8); HEMATOCRIT 42.5 % (37.0-47.0); HEMOGLOBIN 14.2 g/dL (12.0-16.0); LYMPHOCYTES # (AUTO) 1.37 10*3/uL; MEAN CORPUSCULAR HEMOGLOBIN 28.3 PG (27-31); MEAN CORPUSCULAR HGB CONC 33.4 g/dL (33-37); MEAN CORPUSCULAR VOLUME 84.7 FL (81-99); MEAN PLATELET VOLUME 9.6 FL (7.4-12.2); MONOCYTES # (AUTO) 0.82 10*3/UL (0.3-0.8); MONOCYTES % (AUTO) 5.5 % (5-15); NEUTROPHILS # (AUTO) 12.65 10*3/UL; NEUTROPHILS % (AUTO) 84.9 % (50-80); RED BLOOD COUNT 5.02 10^6/uL (4.20-5.40)
[2017-03-12 15:51] LABS: PLATELET MORPHOLOGY COMMENT NORMAL MORPHOLOGY (NORM); RBC MORPHOLOGY COMMENT NORMAL MORPHOLOGY (NORM); WBC MORPHOLOGY COMMENT NORMAL MORPHOLOGY (NORM)
[2017-03-12 15:56] VITALS: RESP 18; TEMP 96.6
[2017-03-12 16:00] LABS: BLOOD UREA NITROGEN 20 mg/dL (7-22); CALCIUM 9.5 mg/dL (8.7-10.7); EST GLOMERULAR FILTRATION 60 (>60 ml/min/1.73m(2)); SERUM ALBUMIN 3.8 g/dL (3.5-4.8)
[2017-03-12 16:01] LABS: C-REACTIVE PROTEIN < 0.5 mg/dL (0.0-0.9)
[2017-03-12] MEDS ORDERED: LORazepam 2 MG/1 ML VIAL IVP ONE (16:07)
[2017-03-12] MEDS ORDERED: Meperidine Inj 50 MG/ML CARPUJECT IVP ONE ×2 (16:07→17:04)
[2017-03-12] MEDS ORDERED: Magnesium Sulfate 1gm (Premix) 1 GM in Dextrose 1 BAG IV ONE (17:04)
[2017-03-12] MEDS ORDERED: Magnesium Sulfate 1gm (Premix) 100 ML IV ONE (17:13)
--- NOTE | 2017-03-12 17:39 | PDOC ---
Headache HPI - General Chief Complaint: Headache Stated Complaint: MIGRAINE Date Seen by Provider: 03/12/17 Time Seen by Provider: 15:10 Source: POSITIVE: Patient Exam Limitations: POSITIVE: No limitations, Clinical condition Nurse's Notes Reviewed & Considered: Yes - History of Present Illness Initial Comments: The patient is a 46-year-old female who presents to the emergency department with headache. She does have a history of migraine headaches. She states that she had onset of headache on Friday of this week. Her headache is primarily right sided and associated with nausea and vomiting. She was evaluated here in the emergency room last night and received several doses of medication, oxygen and IV fluids after which she was feeling better. She states that she was able to go home and sleep. This morning however when she woke up her headache returned. She describes her headache as primarily right sided with associated nausea and vomiting as well as light sensitivity. She also has some blurred vision as well as some lines in her vision which she states is common with migraines for her. She denies any recent illness or trauma, she has not had any numbness or weakness in her arms or legs. She isn't sensitive to multiple medications including hydromorphone which affected her breathing, Reglan which worsened her restless legs and Benadryl which also worsened her restless legs. She has also been intolerant of Toradol which caused itching. Last night she received Demerol and Zofran. In the past she has had multiple CT scans and MRIs all of which have been normal. She states that overall her migraine pattern has been better and she has only had 2 previous migraines in the last year. - Patient Home Medications Home Medications: Home Medications Albuterol Neb Soln 0.083% 1 unit NEB [id number] #1 box 07/04/15 Albuterol/Ipratrop Neb Soln [Duoneb Neb Soln] 1 vial NEB Q4-6HRSPRN #1 box 08/29 Pramipexole Di-HCl [Mirapex] 2 tab PO QHS #60 tab 10/01/16 Amitriptyline HCl 1 tab PO QHS #30 tab 10/14/16 Gabapentin 3 cap PO QHS #90 cap 10/14/16 Levocetirizine Dihydrochloride [Xyzal] 5 mg ORAL QD #30 tab 10/14/16 Sumatriptan 20 mg NS PRN spray 10/14/16 Paroxetine HCl 40 mg PO DAILY #30 tab 11/25/16 Mometasone/Formoterol [Dulera 100 Mcg/5 Mcg Inhaler] 13 gm IH BID 12/18/16 Estradiol 1 tab PO DAILY #30 tab 02/03/17 Albuterol Sulfate [Ventolin Hfa] 1 - 2 puff INH Q4-6H PRN #1 puff 03/11/17 Tramadol HCl 1 - 2 tab PO Q6H PRN #130 tab 03/11/17 Verapamil HCl [Calan Sr] 180 mg PO DAILY #30 tab 03/11/17 Hydrocodone/Acetaminophen [[place] 7.5-325 Tablet] 1 - 2 each PO Q6H PRN #10 tablet 03/12/17 - Patient Allergies Allergies/Adverse Reactions: Allergies Allergy/AdvReac Type Severity Reaction Status Date / Time hydromorphone HCl Allergy SHORTNESS Verified 03/12/17 15:03 [From Dilaudid] OF BREATH codeine [Codeine] AdvReac Intermediate NAUSEA Verified 03/12/17 15:03 levofloxacin AdvReac Intermediate VOMITING Verified 03/12/17 15:03 oxycodone HCl [From Percocet] AdvReac Intermediate NAUSEAA Verified 03/12/17 15: 03 VOMITING ropinirole HCl [From Requip] AdvReac Intermediate VOMITING Verified 03/12/17 15: 03 diphenhydramine HCl AdvReac ITCHING Verified 03/12/17 15:03 [From Benadryl] ketorolac tromethamine AdvReac ITCHING Verified 03/12/17 15:03 [From Toradol] metoclopramide HCl AdvReac ITCHING Verified 03/12/17 15:03 [From Reglan] Past Medical History - heen HEENT History: Denies History Additional HEENT History: RECURRING SINUS INFECTIONS Cardiovascular History: Denies History Respiratory History: Asthma Gastrointestinal History: Gallbladder Disease, Gallbladder Disease Genitourinary History: Kidney Stones Endocrine History: Denies History Musculoskeletal History: Back Pain Prosthesis or Implant: No Additional Musculoskeletal History: RESTLESS LEG Neurological History: Migraines, Motion Sickness Additional Neurological History: CONCUSSION (10/27&10/30), RESTLESS LEG SYNDROME Blood Disorders: Denies History Psychiatric History: Depression, Anxiety Disorders History of Sexually Transmitted Diseases: No Female Reproductive History: Denies History Obstetrical History: Denies History Cancer History: Denies History In Past Year Been Physically Harmed or Verbally Threatened: No History of MDRO: No History of Other Communicable Diseases: Yes (MONO IN 2014) Tobacco Use: Never Smoker Alcohol Use: Rarely Substance Use Type: None Previous Surgical History: Yes Type / Date of Surgery: c section, left shoulder, LEFT CARPAL TUNNEL, RIGHT KNEE / KHLOE/ Anesthesia Reactions: No (PONV) Malignant Hyperthermia: No Significant Family History: Asthma Past Medical History Reviewed: Reviewed - No Changes ROS - Limitations ROS Limitations: No Limitations Constitution: DENIES: Chills, Fever Cardiovascular: REPORTS: Denies Cardiac Symptoms Respiratory: REPORTS: Denies Resp Symptoms Neurological: REPORTS: Headache. DENIES: Confusion, Dizziness, Numbness, Weakness Gastrointestinal: REPORTS: Nausea, Vomitting Endocrine: REPORTS: Denies Symptoms Musculoskeletal: REPORTS: Denies MS Symptoms Genitourinary: REPORTS: Denies Symptoms Eyes: REPORTS: Vision Changes (She does report blurred vision as well as lines in her vision which is common for her when she has a migraine, she also has light sensitivity) ENT: REPORTS: Denies Symptoms Skin: DENIES: Rash Headache Exam - General Appearance General Appearance: POSITIVE: Alert, Cooperative, No Acute Distress - HEENT Head / Face: POSITIVE: No Facial Swelling Eyes: POSITIVE: Inspection Normal Ears: POSITIVE: Ears Normal Inspection Nose: POSITIVE: Inspection Normal Oropharynx: POSITIVE: External Inspection Nml, Airway Intact, Voice Normal - Neck Neck: POSITIVE: Normal Inspection. NEGATIVE: Lymphadenopathy - Respiratory / CVS Respiratory / CVS: POSITIVE: No Respiratory Distress, Heart Sounds Normal, Regular Rate/Rhythm, Breath Sounds Normal Peripheral Pulses: Dorsalis-pedis (R): 2+, Dorsalis-pedis (L): 2+ - Abdomen Abdomen: Soft: (All Quadrants), Denies Tenderness: (All Quadrants), No Distention: (All Quadrants) - Extremities Extremity: Normal ROM: (All Extremities), Normal Inspection: (All Extremities) - Neuro / Psych Higher Functions: POSITIVE: Alert, Oriented x3, Normal Speech Cranial Nerves: POSITIVE: Normal As Tested Sensorimotor: POSITIVE: No Motor Deficits, No Sensory Deficits Headache Progress - Results Reviewed by me Lab Results Reviewed: Yes Lab Results:: Laboratory Results 03/12/17 Range/Units 15:42 WBC 14.89 H (4.8-10.8) 10^3/uL RBC 5.02 (4.20-5.40) 10^6/uL Hgb 14.2 (12.0-16.0) g/dL Hct 42.5 (37.0-47.0) % MCV 84.7 (81-99) FL MCH 28.3 (27-31) PG MCHC 33.4 (33-37) g/dL RDW Std Deviation 45.8 (39-50) fL RDW Coeff of [place] 15.0 H (11.5-14.5) % Plt Count 251 (140-350) 10*3/uL MPV 9.6 (7.4-12.2) FL Immature Gran % (Auto) 0.3 (0-5) % Neut % (Auto) 84.9 H (50-80) % Lymph % (Auto) 9.2 L (10-50) % Powell % (Auto) 5.5 (5-15) % Eos % (Auto) 0 (0-8) % Baso % (Auto) 0.1 (0-1) % Immature Gran # (Auto) 0.04 10*3/UL Neut # (Auto) 12.65 10*3/UL Lymph # (Auto) 1.37 10*3/uL Powell # (Auto) 0.82 H (0.3-0.8) 10*3/UL Eos # (Auto) 0 10*3/UL Baso # (Auto) 0.01 10*3/UL WBC Morphology Comment Normal morphology (NORM) Plt Morphology Comment Normal morphology (NORM) RBC Morph Comment Normal morphology (NORM) Sodium 136 (135-145) meq/L Potassium 4.0 (3.8-5.2) meq/L Chloride 105 (98-112) meq/L Carbon Dioxide 21 L (23-33) meq/L Anion Gap 10 (5-20) BUN 20 (7-22) mg/dL Creatinine 1.0 (0.50-1.20) mg/dL Estimated GFR 60 (>60 ml/min/1.73m(2)) BUN/Creatinine Ratio 20.00 (6-20) Glucose 142 H (78-110) mg/dL Calculated Osmolality 286.0 (267-292) mOsm/kg Calcium 9.5 (8.7-10.7) mg/dL Total Bilirubin 0.4 (0.3-1.2) mg/dL AST 19 (8-39) IU/L ALT 27 (9-52) IU/L Alkaline Phosphatase 73 (38-126) IU/L C-Reactive Protein < 0.5 (0.0-0.9) mg/dL Total Protein 6.8 (6.1-8.0) g/dL Albumin 3.8 (3.5-4.8) g/dL Globulin 3.0 (2.50-4.10) g/dL Albumin/Globulin Ratio 1.20 L (1.3-2.0) mg/g - Patient's Progress MDM / ED Course: An IV was established and the patient did receive 1 L bolus of normal saline. The patient has multiple drug sensitivities and allergies including to many of the medications typically used to treat migraine headaches. She did receive initially Zofran 4 mg IV as well as fentanyl 100 g IV. In addition she also received Decadron 10 mg IV. She had no improvement in headache. She received Demerol 50 mg IV as well as Ativan 1 mg IV again with no improvement in her headache. She was placed on oxygen per mask which she states has helped in the past. She also received magnesium 1 g IV and a repeat dose of Demerol 50 mg IV. After administration of the oxygen and magnesium she seemed to have significant improvement. She states that oxygen has generally helped her in the past. Upon further questioning she does report that at one point she was told she had cluster headaches. The patient was feeling much better and was considered stable for discharge home. Arrangements were made for the patient to have access to home oxygen as needed for recurrent headache. In addition she was discharged home with #10 [place] 7.5/325 which she can take as needed for recurrent headache. She already has Zofran at home that she can take as needed for nausea or vomiting. She is advised return to the emergency room if any worsening or change in symptoms. She is advised follow-up with primary care in 3-5 days. - Consult Counseled: POSITIVE: Patient, RE: Lab Results, RE: DX, RE: Need for F/U Patient Care Time - Estimated PCT Patient Care Time (In Minutes): 30 Vital Signs - Recent Vital Signs Vital Signs: Vital Signs (Last 8 hours) Temp Pulse Resp BP Pulse Ox 03/12/17 15:02 96.6 F L 88 18 134/75 95 - VS Reviewed Vital Signs Reviewed: Yes Discharge Clinical Impression: Headache Discharge Disposition: Discharged to Home Condition: Stable Prescriptions / Orders: Hydrocodone/Acetaminophen [[place] 7.5-325 Tablet] 1 - 2 each PO Q6H PRN #10 tablet PRN Reason: Pain Patient Instructions Given at Discharge: Acute Headache (ED) Additional Instructions: Rest and push fluids. Continue Zofran as needed for nausea/vomiting. He will binge prescribed [place] 7.5/325 one or 2 every 6 hours as needed for pain. In addition you having given a prescription for home O2 which can be used at high flow as needed for recurrent headache. Return to the emergency room if any worsening or change in symptoms. Follow-up with Dr. Santana in 2-3 days. Follow Up With: SHOLA SANTANA [Primary Care Provider] -
== END 2017-03-12 19:22 | disposition home or self-care (01) ==
LOC: ER 14:55
DX: R51 Headache (principal); R11.2 Nausea with vomiting, unspecified
CPT/HCPCS: 80053; 85025; 86140; 96361; 96365; 96375; 96376; 99282; 99283; J3010; J1100; J2060; J2175; J2405; J3475; J7030

== ENCOUNTER 2017-05-07 18:04 | Emergency (ER) | payer BC ==
[2017-05-07] MEDS ORDERED: ONDANSETRON 4 MG/2 ML VIAL IVP ONE (18:33)
[2017-05-07] MEDS ORDERED: KETOROLAC 15 MG/1 ML VIAL IVP ONE (18:33)
[2017-05-07] MEDS ORDERED: MEPERIDINE HCL/PF 100 MG/1 ML INJECTION IVP ONE (18:33)
[2017-05-07] MEDS ORDERED: NORMAL SALINE 10 ML SYRINGE FLUSH IVP PRN (18:33)
[2017-05-07] MEDS ORDERED: Sodium Chloride 0.9% 2,000 ML PRIMARY IV ONE (18:33)
--- NOTE | 2017-05-07 18:38 | PDOC ---
Headache HPI - General Chief Complaint: Head Problem / Injury Stated Complaint: HEADACHE Date Seen by Provider: 05/07/17 Time Seen by Provider: 18:36 - History of Present Illness Initial Comments: This patient is a very nice 46-year-old woman who unfortunately been having substantial headaches lately. She's battled headaches for a long time she is diltiazem for prophylactic medication she's tried every triptan it's been made and with no success. She had an MRI done earlier today for recurrent headaches in her MRI shows no changes from previous MRIs that were done in the past. She' s never seen a neurologist for her headaches. She has needed IV pain medication in the past to control her headaches. She's had a status migrainosus headache now for approximately 48 hours and is in need of relief. - Patient Home Medications Home Medications: Home Medications Albuterol/Ipratrop Neb Soln [Duoneb Neb Soln] 1 vial NEB Q4-6HRSPRN #1 box 08/29 Pramipexole Di-HCl [Mirapex] 2 tab PO QHS #60 tab 10/01/16 Amitriptyline HCl 1 tab PO QHS #30 tab 10/14/16 Gabapentin 3 cap PO QHS #90 cap 10/14/16 Levocetirizine Dihydrochloride [Xyzal] 5 mg ORAL QD #30 tab 10/14/16 Sumatriptan 20 mg NS PRN spray 10/14/16 Mometasone/Formoterol [Dulera 100 Mcg/5 Mcg Inhaler] 13 gm IH BID 12/18/16 Estradiol 1 tab PO DAILY #30 tab 02/03/17 Albuterol Sulfate [Ventolin Hfa] 1 - 2 puff INH Q4-6H PRN #1 puff 03/11/17 Hydrocodone/Acetaminophen [[place] 7.5-325 Tablet] 1 - 2 each PO Q6H PRN #10 tablet 03/12/17 Verapamil HCl 240 mg PO DAILY #30 tab 04/01/17 Albuterol Sulfate 1 unit NEB [id number] #1 box 04/09/17 Methylprednisolone [Medrol] 4 mg PO TAD #21 box 04/09/17 Hydrocodone/Chlorphen P-Stirex [Tussionex Pennkinetic Susp] 5 ml PO Q12H PRN # 80 ml 04/10/17 Paroxetine HCl 40 mg PO DAILY #30 tab 04/14/17 Tramadol HCl 1 - 2 tab PO Q6H PRN #130 tab 05/05/17 - Patient Allergies Allergies/Adverse Reactions: Allergies Allergy/AdvReac Type Severity Reaction Status Date / Time hydromorphone HCl Allergy SHORTNESS Verified 05/07/17 19:51 [From Dilaudid] OF BREATH codeine [Codeine] AdvReac Intermediate NAUSEA Verified 05/07/17 19:51 levofloxacin AdvReac Intermediate VOMITING Verified 05/07/17 19:51 oxycodone HCl [From Percocet] AdvReac Intermediate NAUSEAA Verified 05/07/17 19: 51 VOMITING ropinirole HCl [From Requip] AdvReac Intermediate VOMITING Verified 05/07/17 19: 51 diphenhydramine HCl AdvReac ITCHING Verified 05/07/17 19:51 [From Benadryl] ketorolac tromethamine AdvReac ITCHING Verified 05/07/17 19:51 [From Toradol] metoclopramide HCl AdvReac ITCHING Verified 05/07/17 19:51 [From Reglan] Past Medical History - heen HEENT History: Denies History Additional HEENT History: RECURRING SINUS INFECTIONS Cardiovascular History: Denies History Respiratory History: Asthma Gastrointestinal History: Gallbladder Disease, Gallbladder Disease Genitourinary History: Kidney Stones Endocrine History: Denies History Musculoskeletal History: Back Pain Prosthesis or Implant: No Additional Musculoskeletal History: RESTLESS LEG Neurological History: Migraines, Motion Sickness Additional Neurological History: CONCUSSION (10/27&10/30), RESTLESS LEG SYNDROME Blood Disorders: Denies History Psychiatric History: Depression, Anxiety Disorders History of Sexually Transmitted Diseases: No Cancer History: Denies History History of MDRO: No History of Other Communicable Diseases: Yes (MONO IN 2014) Alcohol Use: Rarely Substance Use Type: None Previous Surgical History: Yes Type / Date of Surgery: c section, left shoulder, LEFT CARPAL TUNNEL, RIGHT KNEE / KHLOE/ Anesthesia Reactions: No (PONV) Malignant Hyperthermia: No Significant Family History: Asthma Past Medical History Reviewed: Reviewed - No Changes ROS - Limitations ROS Limitations: No Limitations Constitution: REPORTS: Denies Symptoms Cardiovascular: REPORTS: Denies Cardiac Symptoms Respiratory: REPORTS: Denies Resp Symptoms Headache Exam - General Appearance General Appearance: POSITIVE: Alert, Cooperative - HEENT Head / Face: POSITIVE: Atraumatic Eyes: POSITIVE: Inspection Normal, Photophobia Ears: POSITIVE: Ears Normal Inspection Nose: POSITIVE: Inspection Normal Oropharynx: POSITIVE: External Inspection Nml - Respiratory / CVS Respiratory / CVS: POSITIVE: No Respiratory Distress - Abdomen Abdomen: Soft: (All Quadrants), Normal Bowel Sounds: (All Quadrants) Headache Progress - Patient's Progress MDM / ED Course: Patient had significant improvement in her headache though not complete resolution but she did feel that she could potentially go home and sleep. She had normal MRI from earlier today or at least no change from previous MRIs in the past. She is improved and encourage her to go home try to get some sleep. She does not have resolution of her headache she is to get back to her primary care provider soon as possible and consider neurologic consultation. Patient Care Time - Estimated PCT Patient Care Time (In Minutes): 35 Vital Signs - VS Reviewed Vital Signs Reviewed: Yes Discharge Clinical Impression: Migraine Discharge Disposition: Discharged to Home Condition: Stable Patient Instructions Given at Discharge: Migraine Headache (ED) Additional Instructions: Follow-up with primary care physician as soon as possible. Consider seeing a neurologist for consultation in regards to her headaches Continue taking your medicines prescribed you by her primary care provider Return here with any worsening of your headache intractable headache or any other concerns. Follow Up With: SHOLA SANTANA [Primary Care Provider] -
[2017-05-07 20:40] VITALS: RESP 16; TEMP 98
== END 2017-05-07 20:18 | disposition home or self-care (01) ==
LOC: ER 18:04
DX: G43.009 Migraine without aura, not intractable, without status migrainosus (principal); H53.143 Visual discomfort, bilateral
CPT/HCPCS: 96361; 96374; 96375; 99282; 99283; J1885; J2175; J2405; J7030

== ENCOUNTER → 2017-05-07 | Outpatient (CLI) | payer BC ==
--- NOTE | 2017-05-07 12:47 | DI ---
MRI BRAIN W/WO CN,05/07/2017 9:09 AM: Clinical History: [place] headache Previous Exam: October 19, 2007 Findings: Multiplanar MR images are obtained through the brain both before and after the intravenous administra tion of 20 mL of gadolinium contrast. Ventricles and other CSF containing spaces are normal and symmetric. There is no mass, hemorrhage nor midline shift. The midline structures are unremarkable. The parasellar region is unremarkable. There is approximatel y 4 mm of extension of the cerebellar tonsils through the foramen magnum. This was also seen on the p rior exam. The visualized portions of the brainstem are unremarkable. The corpus callosum is also unremarkable. There is a single focus of low signal within the right basal ganglia measuring 2 mm. This was seen on the prior exam as well, and demonstrates some mild blooming artifact. The major vascular flow voids are unremarkable. There is no evidence of aneurysmal dilation. There is no abnormally restricted diffusion. There is no abnormal FLAIR signal, and there is no Impression: 1. No acute intracranial pathology.
== END ==
LOC: MRI 09:04
PROVIDERS: ATTEND Nurse Practitioner Family
DX: G44.53 Primary thunderclap headache (principal); F07.81 Postconcussional syndrome
CPT/HCPCS: 70553

== ENCOUNTER 2017-05-12 18:25 | Emergency (ER) | payer BC ==
[2017-05-12] MEDS ORDERED: DEXAMETHASONE PF 10 MG/1 ML VIAL IV ONE (18:33)
[2017-05-12] MEDS ORDERED: KETOROLAC 15 MG/1 ML VIAL IVP ONE (18:33)
[2017-05-12] MEDS ORDERED: Sodium Chloride 0.9% 1,000 ML PRIMARY IV ONE (18:33)
[2017-05-12] MEDS ORDERED: Prochlorperazine Edisylate Inj 10mg/2ml vial IVP ONE (18:33)
[2017-05-12] MEDS ORDERED: Magnesium Sulfate 2gm (Premix) 2 GM in Premix 1 BAG IV ONE (18:33)
[2017-05-12] MEDS ORDERED: ONDANSETRON 4 MG/2 ML VIAL IVP ONE (18:35)
--- NOTE | 2017-05-12 18:36 | PDOC ---
Headache HPI - General Chief Complaint: Headache Stated Complaint: Migraine x 1 week Date Seen by Provider: 05/12/17 Time Seen by Provider: 18:36 Source: POSITIVE: Patient Exam Limitations: POSITIVE: No limitations Nurse's Notes Reviewed & Considered: Yes - History of Present Illness Initial Comments: Patient comes in today with a migraine that has been ongoing for 1 week. She has a persistent migraine and is scheduled to see a neurologist on Friday. She has photophobia, blurry vision, nausea but no vomiting, she denies any fever chills or sweats, she states loud noises increase her headache. Patient had a MRI performed 3 or 4 days ago that was normal. Body Location Affected: REPORTS: Head Timing: REPORTS: Constant Duration: >1 week Severity: Severe Quality: REPORTS: "Pain", Stabbing, Throbbing Associated Symptoms: REPORTS: Problems with Vision, Sensitivity to Light Exacerbated by: REPORTS: Light, Noise, Movement Any Prior Injuries Related to Current Complaint?: No - Patient Home Medications Home Medications: Home Medications Albuterol/Ipratrop Neb Soln [Duoneb Neb Soln] 1 vial NEB Q4-6HRSPRN #1 box 08/29 Pramipexole Di-HCl [Mirapex] 2 tab PO QHS #60 tab 10/01/16 Amitriptyline HCl 1 tab PO QHS #30 tab 10/14/16 Gabapentin 3 cap PO QHS #90 cap 10/14/16 Levocetirizine Dihydrochloride [Xyzal] 5 mg ORAL QD #30 tab 10/14/16 Sumatriptan 20 mg NS PRN spray 10/14/16 Mometasone/Formoterol [Dulera 100 Mcg/5 Mcg Inhaler] 13 gm IH BID 12/18/16 Estradiol 1 tab PO DAILY #30 tab 02/03/17 Albuterol Sulfate [Ventolin Hfa] 1 - 2 puff INH Q4-6H PRN #1 puff 03/11/17 Hydrocodone/Acetaminophen [[place] 7.5-325 Tablet] 1 - 2 each PO Q6H PRN #10 tablet 03/12/17 Verapamil HCl 240 mg PO DAILY #30 tab 04/01/17 Albuterol Sulfate 1 unit NEB [id number] #1 box 04/09/17 Methylprednisolone [Medrol] 4 mg PO TAD #21 box 04/09/17 Hydrocodone/Chlorphen P-Stirex [Tussionex Pennkinetic Susp] 5 ml PO Q12H PRN # 80 ml 04/10/17 Paroxetine HCl 40 mg PO DAILY #30 tab 04/14/17 Tramadol HCl 1 - 2 tab PO Q6H PRN #130 tab 05/05/17 - Patient Allergies Allergies/Adverse Reactions: Allergies Allergy/AdvReac Type Severity Reaction Status Date / Time hydromorphone HCl Allergy SHORTNESS Verified 05/12/17 20:02 [From Dilaudid] OF BREATH codeine [Codeine] AdvReac Intermediate NAUSEA Verified 05/12/17 20:02 levofloxacin AdvReac Intermediate VOMITING Verified 05/12/17 20:02 oxycodone HCl [From Percocet] AdvReac Intermediate NAUSEAA Verified 05/12/17 20: 02 VOMITING ropinirole HCl [From Requip] AdvReac Intermediate VOMITING Verified 05/12/17 20: 02 diphenhydramine HCl AdvReac ITCHING Verified 05/12/17 20:02 [From Benadryl] ketorolac tromethamine AdvReac ITCHING Verified 05/12/17 20:02 [From Toradol] metoclopramide HCl AdvReac ITCHING Verified 05/12/17 20:02 [From Reglan] Past Medical History - heen HEENT History: Denies History Additional HEENT History: RECURRING SINUS INFECTIONS Cardiovascular History: Denies History Respiratory History: Asthma Gastrointestinal History: Gallbladder Disease, Gallbladder Disease Genitourinary History: Kidney Stones Endocrine History: Denies History Musculoskeletal History: Back Pain Prosthesis or Implant: No Additional Musculoskeletal History: RESTLESS LEG Neurological History: Migraines, Motion Sickness Additional Neurological History: CONCUSSION (10/27&10/30), RESTLESS LEG SYNDROME Blood Disorders: Denies History Psychiatric History: Depression, Anxiety Disorders History of Sexually Transmitted Diseases: No Cancer History: Denies History History of MDRO: No History of Other Communicable Diseases: Yes (MONO IN 2013) Alcohol Use: Rarely Substance Use Type: None Previous Surgical History: Yes Type / Date of Surgery: c section, left shoulder, LEFT CARPAL TUNNEL, RIGHT KNEE / KHLOE/ Anesthesia Reactions: No (PONV) Malignant Hyperthermia: No Significant Family History: Asthma ROS - Limitations ROS Limitations: No Limitations Constitution: REPORTS: Denies Symptoms Cardiovascular: REPORTS: Denies Cardiac Symptoms Respiratory: REPORTS: Denies Resp Symptoms Neurological: REPORTS: Headache Gastrointestinal: REPORTS: Nausea Endocrine: REPORTS: Denies Symptoms Musculoskeletal: REPORTS: Denies MS Symptoms Genitourinary: REPORTS: Denies Symptoms Eyes: REPORTS: Denies Symptoms ENT: REPORTS: Denies Symptoms Skin: REPORTS: Denies Skin Symptoms Lympathic: REPORTS: Denies Lympathic Symptoms Immunologic: POSITIVE: Denies Symptoms Psychiatric: POSITIVE: Denies Psych Symptoms Headache Exam - General Appearance General Appearance: POSITIVE: Alert, Cooperative, No Evidence of Trauma, Moderate Distress - HEENT Head / Face: POSITIVE: Atraumatic, Normal Inspection, No Facial Swelling Eyes: POSITIVE: Inspection Normal, PERRL, EOM's Intact, Eyelids Uninjured, Conjunctivae Uninjured, No Nystagmus, No Globe Trauma, Sclera Normal Ears: POSITIVE: Ears Normal Inspection, Auricle Normal Nose: POSITIVE: Inspection Normal, No Apparent Trauma, Nares Normal, No CSF Leak Oropharynx: POSITIVE: External Inspection Nml, Pharynx Inspect. Nml, Airway Intact, Voice Normal, Moist Mucous Membranes, No Oral Injury, Lips Normal, Gums Normal, No Drooling, No Thrush, Normal Gag Reflex - Pupil Size Pupil Size: 5 mm: Bilateral - Neck Neck: POSITIVE: Normal Inspection, Supple - Respiratory / CVS Respiratory / CVS: POSITIVE: Chest Non-Tender, No Respiratory Distress, Heart Sounds Normal, Regular Rate/Rhythm, Breath Sounds Normal - Abdomen Abdomen: Soft: (All Quadrants), Normal Bowel Sounds: (All Quadrants), Denies Tenderness: (All Quadrants), No Splenomegaly: (All Quadrants), No Hepatomegaly: (All Quadrants), No Guarding: (All Quadrants), No Rebound: (All Quadrants), No Palpable Pulse: (All Quadrants), No Palpabale Mass: (All Quadrants), No Distention: (All Quadrants), No Rigidity: (All Quadrants) - Skin Skin: POSITIVE: Intact, Normal Palpation - Extremities Extremity: Non-Tender: (All Extremities), Normal ROM: (All Extremities), Normal Inspection: (All Extremities), Pelvis Stable: (All Extremities) - Neuro / Psych Higher Functions: POSITIVE: Alert, Oriented x3, Normal Speech, Mood Appropriate , Affect Appropriate Cranial Nerves: POSITIVE: Normal As Tested, No Evidence of Acute CVA Cerebellar: POSITIVE: Normal As Tested Sensorimotor: POSITIVE: No Motor Deficits, No Sensory Deficits Headache Progress - Results Reviewed by me Lab Results Reviewed: Yes Lab Results:: Laboratory Results 05/12/17 Range/Units 18:38 WBC 5.72 (4.8-10.8) 10^3/uL RBC 5.16 (4.20-5.40) 10^6/uL Hgb 15.2 (12.0-16.0) g/dL Hct 45.4 (37.0-47.0) % MCV 88.0 (81-99) FL MCH 29.5 (27-31) PG MCHC 33.5 (33-37) g/dL RDW Std Deviation 43.7 (39-50) fL RDW Coeff of [place] 13.9 (11.5-14.5) % Plt Count 263 (140-350) 10*3/uL MPV 9.2 (7.4-12.2) FL Immature Gran % (Auto) 0.2 (0-5) % Neut % (Auto) 49.3 L (50-80) % Lymph % (Auto) 41.4 (10-50) % [place] % (Auto) 6.3 (5-15) % Eos % (Auto) 1.9 (0-8) % Baso % (Auto) 0.9 (0-1) % Immature Gran # (Auto) 0.01 10*3/UL Neut # (Auto) 2.82 10*3/UL Lymph # (Auto) 2.37 10*3/uL [place] # (Auto) 0.36 (0.3-0.8) 10*3/UL Eos # (Auto) 0.11 10*3/UL Baso # (Auto) 0.05 10*3/UL WBC Morphology Comment Normal morphology (NORM) Plt Morphology Comment Normal morphology (NORM) RBC Morph Comment Normal morphology (NORM) Sodium 140 (135-145) meq/L Potassium 3.7 L (3.8-5.2) meq/L Chloride 109 (98-112) meq/L Carbon Dioxide 20 L (23-33) meq/L Anion Gap 11 (5-20) BUN 15 (7-22) mg/dL Creatinine 0.9 (0.50-1.20) mg/dL Estimated GFR > 60 (>60 ml/min/1.73m(2)) BUN/Creatinine Ratio 16.66 (6-20) Glucose 106 (78-110) mg/dL Calculated Osmolality 290.0 (267-292) mOsm/kg Calcium 8.7 (8.7-10.7) mg/dL Magnesium 2.0 (1.6-2.4) mg/dL Total Bilirubin 0.3 (0.3-1.2) mg/dL AST 22 (8-39) IU/L ALT 27 (9-52) IU/L Alkaline Phosphatase 79 (38-126) IU/L C-Reactive Protein 0.5 (0.0-0.9) mg/dL Total Protein 7.0 (6.1-8.0) g/dL Albumin 3.8 (3.5-4.8) g/dL Globulin 3.2 (2.50-4.10) g/dL Albumin/Globulin Ratio 1.10 L (1.3-2.0) mg/g TSH 1.16 (0.2700-4.2000) uIU/mL Free T4 0.99 (0.93-1.71) ng/dL - Patient's Progress Re-Examine Time:: 21:07 Status: POSITIVE: Improved MDM / ED Course: Patient was examined, an IV started, blood drawn and sent to the lab for studies , and patient received dexamethasone, Toradol, Ativan, Compazine, magnesium, and fentanyl. Her headache minimally improved. Findings: CBC is normal. Comprehensive metabolic panel is unremarkable. Thyroid panel is within normal limits. Assessment: Intractable migraine headache. Plan: Discharge home, rest, Tylenol and ibuprofen, follow-up with her neurologist as scheduled. Return to the emergency department if increasing signs or symptoms. - Consult Counseled: POSITIVE: Patient, Family, RE: Lab Results, RE: Radiology Results, RE : DX, RE: Need for F/U Patient Care Time - Estimated PCT Patient Care Time (In Minutes): 45 Vital Signs - Recent Vital Signs Vital Signs: Vital Signs (Last 8 hours) Temp Pulse Resp BP Pulse Ox 05/12/17 19:00 96.9 F 93 20 140/96 98 - VS Reviewed Vital Signs Reviewed: Yes Discharge Clinical Impression: Intractable chronic migraine without aura Clinical Impression: (Ruled Out): Migraine aura, persistent Discharge Disposition: Discharged to Home Condition: Stable Patient Instructions Given at Discharge: Migraine Headache (ED) Follow Up With: SHOLA SANTANA [Primary Care Provider] -
[2017-05-12] MEDS ORDERED: ONDANSETRON 4 MG/2 ML VIAL ONE (18:39)
[2017-05-12 18:40] LABS: BASOPHILS # (AUTO) 0.05 10*3/UL; BASOPHILS % (AUTO) 0.9 % (0-1); EOSINOPHILS # (AUTO) 0.11 10*3/UL; EOSINOPHILS % (AUTO) 1.9 % (0-8); HEMATOCRIT 45.4 % (37.0-47.0); HEMOGLOBIN 15.2 g/dL (12.0-16.0); LYMPHOCYTES # (AUTO) 2.37 10*3/uL; MEAN CORPUSCULAR HEMOGLOBIN 29.5 PG (27-31); MEAN CORPUSCULAR HGB CONC 33.5 g/dL (33-37); MEAN PLATELET VOLUME 9.2 FL (7.4-12.2); MONOCYTES # (AUTO) 0.36 10*3/UL (0.3-0.8); MONOCYTES % (AUTO) 6.3 % (5-15); NEUTROPHILS # (AUTO) 2.82 10*3/UL; NEUTROPHILS % (AUTO) 49.3 % (50-80); PLATELET MORPHOLOGY COMMENT NORMAL MORPHOLOGY (NORM); RBC MORPHOLOGY COMMENT NORMAL MORPHOLOGY (NORM); RED BLOOD COUNT 5.16 10^6/uL (4.20-5.40); WBC MORPHOLOGY COMMENT NORMAL MORPHOLOGY (NORM)
[2017-05-12 18:52] LABS: BLOOD UREA NITROGEN 15 mg/dL (7-22); BUN/CREATININE RATIO 16.66 (6-20); C-REACTIVE PROTEIN 0.5 mg/dL (0.0-0.9); CALCIUM 8.7 mg/dL (8.7-10.7); EST GLOMERULAR FILTRATION > 60 (>60 ml/min/1.73m(2)); SERUM ALBUMIN 3.8 g/dL (3.5-4.8)
[2017-05-12 19:06] LABS: FREE T4 (FREE THYROXINE) 0.99 ng/dL (0.93-1.71)
[2017-05-12 20:19] VITALS: RESP 20; TEMP 96.9
[2017-05-12] MEDS ORDERED: fentaNYL Inj 100 MCG/2 ML VIAL IVP ONE (20:29)
[2017-05-12] MEDS ORDERED: LORazepam 2 MG/1 ML VIAL IVP ONE (20:52)
== END 2017-05-12 21:20 | disposition home or self-care (01) ==
LOC: ER 18:25
DX: G43.019 Migraine without aura, intractable, without status migrainosus (principal); H53.143 Visual discomfort, bilateral; R11.0 Nausea
CPT/HCPCS: 80053; 83735; 84439; 84443; 85025; 86140; 96361; 96365; 96375; 99282; 99283; J3010; J0780; J1100; J1885; J2060; J2405; J3475; J7030

== ENCOUNTER 2017-05-17 12:16 | Emergency (ER) | payer BC ==
[2017-05-17 12:36] VITALS: TEMP 96.7
[2017-05-17] MEDS ORDERED: KETOROLAC 30 MG/1 ML VIAL IVP ONE (12:37)
[2017-05-17] MEDS ORDERED: DEXAMETHASONE PF 10 MG/1 ML VIAL IM ONE (12:37)
[2017-05-17] MEDS ORDERED: Metoclopramide Inj 10 MG/2 ML VIAL IVP ONE (12:37)
[2017-05-17] MEDS ORDERED: NORMAL SALINE 10 ML SYRINGE FLUSH IVP PRN (12:37)
[2017-05-17] MEDS: Sodium Chloride 0.9% 1,000 ML PRIMARY IV ONE ×3 (12:45→17:26)
[2017-05-17] MEDS ORDERED: LORazepam 2 MG/1 ML VIAL IVP ONE (13:43)
[2017-05-17] MEDS ORDERED: DIHYDROERGOTAMINE MESYLATE 1 MG/1 ML AMPULE IVP ONE (13:43)
[2017-05-17] MEDS ORDERED: MEPERIDINE HCL/PF 100 MG/1 ML INJECTION IVP ONE ×2 (14:21→15:18)
[2017-05-17 15:55] VITALS: RESP 16
[2017-05-17] MEDS ORDERED: HYDROcodone-APAP 10 MG-325 MG TABLET PO PRN (18:03)
--- NOTE | 2017-05-18 04:45 | PDOC ---
Headache HPI - General Chief Complaint: Headache Stated Complaint: migraine for three weeks Date Seen by Provider: 05/17/17 Time Seen by Provider: 12:20 Source: POSITIVE: Patient, Old records Exam Limitations: POSITIVE: No limitations Nurse's Notes Reviewed & Considered: Yes - History of Present Illness Initial Comments: The patient is a 46-year-old female. She states that she has for the past 3 weeks had a headache, mainly in the right occipital parietal area. She states that she has had associated photophobia and nausea. Patient has a 19 year history of chronic recurring migraine headaches. Patient was seen by her primary care provider on 05/07/2017 and had an MRI of the brain with and without contrast, which was read as normal. Patient states that approximately 4 weeks ago she did stumble off a step and struck her head on some concrete, but had no loss of consciousness. Patient has tried numerous medications for her chronic recurring headaches, including triptans to which she states she is intolerant. She presently takes verapamil daily for migraines, and this dosage was recently increased by her primary care provider. She also takes gabapentin for her headaches and amitriptyline. She also takes Paxil for depression. She takes Mirapex for restless legs. She states she gets episodes of "bad headaches " every 4 or 5 months. Her present headache is identical to her previous episodes, but is more persistent. She states her primary care provider has been working to arrange for her to be evaluated and treated by a neurologist in [place]. No fevers or chills. No meningeal signs. She describes the character of her headache as "throbbing". No associated focal sensory or motor symptoms. No difficulty speaking. Body Location Affected: REPORTS: Head Timing: REPORTS: Constant Duration: >1 week (3 weeks) Severity: Moderate Quality: REPORTS: "Pain", Throbbing Context: DENIES: CO Exposure, Tick Bite, Insect Bite, Recent Head Injury, Other Associated Symptoms: REPORTS: Sensitivity to Light, Nausea. DENIES: Fever, Chills, Sweating, Problems with Vision, Visual Disturb Preceding, [place] Preceding, Typical of Prior Aura(s), Vomiting, Neck Pain, Stiffness, Speech Problems, Weakness, Trouble Walking, Tingling, Numbness, Dizziness, Lightheadedness, Other Exacerbated by: REPORTS: Light, Noise Any Prior Injuries Related to Current Complaint?: No - Patient Home Medications Home Medications: Home Medications Albuterol/Ipratrop Neb Soln [Duoneb Neb Soln] 1 vial NEB Q4-6HRSPRN #1 box 08/29 Pramipexole Di-HCl [Mirapex] 2 tab PO QHS #60 tab 10/01/16 Amitriptyline HCl 1 tab PO QHS #30 tab 10/14/16 Gabapentin 3 cap PO QHS #90 cap 10/14/16 Levocetirizine Dihydrochloride [Xyzal] 5 mg ORAL QD #30 tab 10/14/16 Sumatriptan 20 mg NS PRN spray 10/14/16 Mometasone/Formoterol [Dulera 100 Mcg/5 Mcg Inhaler] 13 gm IH BID 12/18/16 Estradiol 1 tab PO DAILY #30 tab 02/03/17 Albuterol Sulfate [Ventolin Hfa] 1 - 2 puff INH Q4-6H PRN #1 puff 03/11/17 Hydrocodone/Acetaminophen [[place] 7.5-325 Tablet] 1 - 2 each PO Q6H PRN #10 tablet 03/12/17 Verapamil HCl 240 mg PO DAILY #30 tab 04/01/17 Albuterol Sulfate 1 unit NEB [id number] #1 box 04/09/17 Methylprednisolone [Medrol] 4 mg PO TAD #21 box 04/09/17 Hydrocodone/Chlorphen P-Stirex [Tussionex Pennkinetic Susp] 5 ml PO Q12H PRN # 80 ml 04/10/17 Paroxetine HCl 40 mg PO DAILY #30 tab 04/14/17 Tramadol HCl 1 - 2 tab PO Q6H PRN #130 tab 05/05/17 HYDROcodone/APAP 10/325 Tab [[place] 10/325 Tab] 1 tab PO Q4H PRN #25 tab - Patient Allergies Allergies/Adverse Reactions: Allergies Allergy/AdvReac Type Severity Reaction Status Date / Time hydromorphone HCl Allergy SHORTNESS Verified 05/17/17 12:22 [From Dilaudid] OF BREATH codeine [Codeine] AdvReac Intermediate NAUSEA Verified 05/17/17 12:22 levofloxacin AdvReac Intermediate VOMITING Verified 05/17/17 12:22 oxycodone HCl [From Percocet] AdvReac Intermediate NAUSEAA Verified 05/17/17 12: 22 VOMITING ropinirole HCl [From Requip] AdvReac Intermediate VOMITING Verified 05/17/17 12: 22 diphenhydramine HCl AdvReac ITCHING Verified 05/17/17 12:22 [From Benadryl] ketorolac tromethamine AdvReac ?ITCHING Verified 05/17/17 14:51 [From Toradol] metoclopramide HCl AdvReac ? ITCHING Verified 05/17/17 14:51 [From Reglan] Past Medical History - heen HEENT History: Denies History Additional HEENT History: RECURRING SINUS INFECTIONS Cardiovascular History: Denies History Respiratory History: Asthma, Home Oxygen Use Gastrointestinal History: Gallbladder Disease, Gallbladder Disease Genitourinary History: Kidney Stones Endocrine History: Denies History Musculoskeletal History: Back Pain Prosthesis or Implant: No Additional Musculoskeletal History: RESTLESS LEG Neurological History: Migraines, Motion Sickness Additional Neurological History: CONCUSSION (10/27&10/30), RESTLESS LEG SYNDROME Blood Disorders: Denies History Psychiatric History: Depression, Anxiety Disorders History of Sexually Transmitted Diseases: No Female Reproductive History: Hysterectomy Cancer History: Denies History In Past Year Been Physically Harmed or Verbally Threatened: No History of MDRO: No History of Other Communicable Diseases: Yes (MONO IN 2013) Tobacco Use: Never Smoker Alcohol Use: Rarely Substance Use Type: None Previous Surgical History: Yes Type / Date of Surgery: c section, left shoulder, LEFT CARPAL TUNNEL, RIGHT KNEE / KHLOE/ Anesthesia Reactions: No (PONV) Malignant Hyperthermia: No Significant Family History: Asthma Past Medical History Reviewed: Reviewed - No Changes ROS - Limitations ROS Limitations: No Limitations Constitution: REPORTS: Denies Symptoms Cardiovascular: REPORTS: Denies Cardiac Symptoms Respiratory: REPORTS: Denies Resp Symptoms Neurological: REPORTS: Headache Gastrointestinal: REPORTS: Denies GI Symptoms Endocrine: REPORTS: Denies Symptoms Musculoskeletal: REPORTS: Denies MS Symptoms Genitourinary: REPORTS: Denies Symptoms Eyes: REPORTS: Denies Symptoms ENT: REPORTS: Denies Symptoms Skin: REPORTS: Denies Skin Symptoms Lympathic: REPORTS: Denies Lympathic Symptoms Immunologic: POSITIVE: Denies Symptoms Psychiatric: POSITIVE: Denies Psych Symptoms Headache Exam - General Appearance General Appearance: POSITIVE: Alert, Cooperative, No Evidence of Trauma, Moderate Distress. NEGATIVE: No Acute Distress - HEENT Head / Face: POSITIVE: Atraumatic, Normal Inspection, No Facial Swelling, Other (Intensity of headaches somewhat relieved by compression of scalp.) Eyes: POSITIVE: Inspection Normal, PERRL, EOM's Intact, Eyelids Uninjured, Conjunctivae Uninjured, No Nystagmus, No Globe Trauma, Sclera Normal, Normal Corneal Inspection, Normal Fundoscopic Exam, Ant. Chamber Nml Inspect., No Papilledema Ears: POSITIVE: Ears Normal Inspection, TM Normal Inspection, Auricle Normal, External Canal Normal Nose: POSITIVE: Inspection Normal, No Apparent Trauma, Nares Normal, No CSF Leak Oropharynx: POSITIVE: External Inspection Nml, Pharynx Inspect. Nml, Airway Intact, Voice Normal, Moist Mucous Membranes, No Oral Injury, Lips Normal, Gums Normal, No Drooling, No Thrush, Normal Gag Reflex Dental: POSITIVE: No Dental Injury - Pupil Size Pupil Size: 4 mm: Bilateral (PERRLA) - Neck Neck: POSITIVE: Normal Inspection, Supple - Respiratory / CVS Respiratory / CVS: POSITIVE: Chest Non-Tender, No Respiratory Distress, Heart Sounds Normal, Regular Rate/Rhythm, Breath Sounds Normal Peripheral Pulses: Radial (R): 2+, Radial (L): 2+ - Abdomen Abdomen: Soft: (All Quadrants), Normal Bowel Sounds: (All Quadrants), Denies Tenderness: (All Quadrants), No Splenomegaly: (All Quadrants), No Hepatomegaly: (All Quadrants), No Guarding: (All Quadrants), No Rebound: (All Quadrants), No Palpable Pulse: (All Quadrants), No Palpabale Mass: (All Quadrants), No Distention: (All Quadrants), No Rigidity: (All Quadrants) - Skin Skin: POSITIVE: Intact, Normal Palpation - Extremities Extremity: Non-Tender: (All Extremities), Normal ROM: (All Extremities), Normal Inspection: (All Extremities) - Neuro / Psych Higher Functions: POSITIVE: Alert, Oriented x3, Normal Speech, Mood Appropriate , Affect Appropriate Cranial Nerves: POSITIVE: Normal As Tested, No Evidence of Acute CVA Cerebellar: POSITIVE: Normal As Tested Sensorimotor: POSITIVE: No Motor Deficits Images - Head Head: 1 - Area of most intense headache Headache Progress - Results Reviewed by me Xrays/CTs/US Reviewed by me: Yes Discussed with Radiologist: No Radiology Findings: Results of MRI of the brain with and without contrast done 05/07/2017 reviewed; was interpreted as normal by radiologist. - Patient's Progress Pain Medication Addressed: POSITIVE: Yes (Patient initially given a liter of normal saline IV along with Toradol, 30 mg IV and Reglan 10 mg IV. This had little effect. Patient then given DHE 45, 1 g IV, 100% oxygen by nonrebreather mask and 2 mg of Ativan IV and 100 mg of Demerol IV. Patient had some improvement after this. Patient given a second dose of Demerol, 100 mg IV and patient slept afterward and upon awakening states she feels better.) School/Work Release Addressed: POSITIVE: Not Applicable Re-Examine Time:: 18:00 Re-Examine Comment: Patient slept after medication as above. Feels better upon awakening. Status: POSITIVE: Improved, Re-Examined, Pain Relieved - Consult Counseled: POSITIVE: Patient, RE: Radiology Results, RE: DX, RE: Need for F/U Patient Care Time - Estimated PCT Patient Care Time (In Minutes): 75 Vital Signs - VS Reviewed Vital Signs Reviewed: Yes Discharge Clinical Impression: Migraine Discharge Disposition: Discharged to Home Condition: Fair Prescriptions / Orders: HYDROcodone/APAP 10/325 Tab [[place] 10/325 Tab] 1 tab PO Q4H PRN #25 tab PRN Reason: Pain Patient Instructions Given at Discharge: Migraine Headache (ED) Additional Instructions: Please follow-up with your neurologist as soon as possible. Continue present medications. Hydrocodone/APAP, one every 4 hours as necessary for pain. Rest. Sleep tonight. Return as necessary. Follow Up With: SHOLA SANTANA [Primary Care Provider] - (Instructions as above. Return as necessary. Follow-up with your primary care and neurologist.)
== END 2017-05-17 18:32 | disposition home or self-care (01) ==
LOC: ER 12:16
DX: G43.009 Migraine without aura, not intractable, without status migrainosus (principal)
CPT/HCPCS: 96361; 96372; 96374; 96375; 96376; 99283; 99284; J1885; J2765; J1100; J1110; J2060; J2175; J7030

== ENCOUNTER 2017-05-24 16:10 | Emergency (ER) | payer BC ==
[2017-05-24] MEDS ORDERED: DEXAMETHASONE PF 10 MG/1 ML VIAL IM ONE (16:39)
[2017-05-24] MEDS ORDERED: ONDANSETRON 4 MG/2 ML VIAL IVP ONE (16:39)
[2017-05-24] MEDS ORDERED: NORMAL SALINE 10 ML SYRINGE FLUSH IVP PRN (16:39)
[2017-05-24] MEDS ORDERED: Sodium Chloride 0.9% 1,000 ML PRIMARY IV ONE (16:39)
[2017-05-24] MEDS ORDERED: fentaNYL Inj 100 MCG/2 ML VIAL IVP ONE ×2 (16:40→17:19)
[2017-05-24 16:41] VITALS: RESP 18; TEMP 96.4
[2017-05-24 16:59] LABS: EOSINOPHILS % (AUTO) 1.5 % (0-8); HEMATOCRIT 44.9 % (37.0-47.0); LYMPHOCYTES # (AUTO) 2.43 10*3/uL; MEAN CORPUSCULAR HEMOGLOBIN 29.5 PG (27-31); MEAN CORPUSCULAR HGB CONC 33.4 g/dL (33-37); MEAN CORPUSCULAR VOLUME 88.2 FL (81-99); MEAN PLATELET VOLUME 9.6 FL (7.4-12.2); MONOCYTES # (AUTO) 0.45 10*3/UL (0.3-0.8); MONOCYTES % (AUTO) 6.6 % (5-15); NEUTROPHILS # (AUTO) 3.56 10*3/UL; NEUTROPHILS % (AUTO) 52.6 % (50-80); RED BLOOD COUNT 5.09 10^6/uL (4.20-5.40)
[2017-05-24 17:02] LABS: PLATELET MORPHOLOGY COMMENT NORMAL MORPHOLOGY (NORM); RBC MORPHOLOGY COMMENT NORMAL MORPHOLOGY (NORM); WBC MORPHOLOGY COMMENT NORMAL MORPHOLOGY (NORM)
[2017-05-24 17:06] LABS: BLOOD UREA NITROGEN 18 mg/dL (7-22)
[2017-05-24 17:07] LABS: C-REACTIVE PROTEIN 0.8 mg/dL (0.0-0.9); CALCIUM 8.7 mg/dL (8.7-10.7); EST GLOMERULAR FILTRATION > 60 (>60 ml/min/1.73m(2))
--- NOTE | 2017-05-24 17:30 | PDOC ---
Headache HPI - General Chief Complaint: Headache Stated Complaint: migraine FINLEY, unable to keep pain meds down Date Seen by Provider: 05/24/17 Time Seen by Provider: 16:35 Source: POSITIVE: Patient Exam Limitations: POSITIVE: No limitations Nurse's Notes Reviewed & Considered: Yes - History of Present Illness Initial Comments: The patient is a 46-year-old female who presents to the emergency department with continued headache. She has a history of migraine headaches for the past 9 years. She reports that she has had 7 previous head injuries, the last one about 5 or 6 weeks ago. She did have an MRI in early April which did not show any abnormality after her last head injury. For the past 4-5 weeks she has had nearly continuous headaches and is been seen here in the emergency department multiple times. She has received multiple different medications here and her headaches have been quite refractory. She also has multiple medication sensitivities. She denies any new or different symptoms. She states that her headache has not resolved since the last time she was here in the emergency department on May 18. Today she had increased nausea and vomiting and has been unable to keep anything down. She was taking hydrocodone which seem to be helping for the pain. She also takes verapamil. She does see a neurologist in [place] however she has been unable to get an appointment recently and she reports that they have not returned her phone call yet. She denies any fevers or chills, sinus symptoms, numbness or weakness in her arms or legs or any other associated symptoms. - Patient Home Medications Home Medications: Home Medications Albuterol/Ipratrop Neb Soln [Duoneb Neb Soln] 1 vial NEB Q4-6HRSPRN #1 box 08/29 Pramipexole Di-HCl [Mirapex] 2 tab PO QHS #60 tab 10/01/16 Amitriptyline HCl 1 tab PO QHS #30 tab 10/14/16 Gabapentin 3 cap PO QHS #90 cap 10/14/16 Levocetirizine Dihydrochloride [Xyzal] 5 mg ORAL QD #30 tab 10/14/16 Estradiol 1 tab PO DAILY #30 tab 02/03/17 Albuterol Sulfate [Ventolin Hfa] 1 - 2 puff INH Q4-6H PRN #1 puff 03/11/17 Hydrocodone/Acetaminophen [Allison 7.5-325 Tablet] 1 - 2 each PO Q6H PRN #10 tablet 03/12/17 Verapamil HCl 240 mg PO DAILY #30 tab 04/01/17 Albuterol Sulfate 1 unit NEB [id number] #1 box 04/09/17 Paroxetine HCl 40 mg PO DAILY #30 tab 04/14/17 Tramadol HCl 1 - 2 tab PO Q6H PRN #130 tab 05/05/17 HYDROcodone/APAP 5/325 Tab [Allison 5/325 Tab] 1 each PO Q6H PRN #15 tablet Ondansetron Odt [Zofran Odt] 8 mg PO Q6H PRN #15 tab.rapdis 05/24/17 - Patient Allergies Allergies/Adverse Reactions: Allergies Allergy/AdvReac Type Severity Reaction Status Date / Time hydromorphone HCl Allergy SHORTNESS Verified 05/24/17 16:26 [From Dilaudid] OF BREATH codeine [Codeine] AdvReac Intermediate NAUSEA Verified 05/24/17 16:26 levofloxacin AdvReac Intermediate VOMITING Verified 05/24/17 16:26 oxycodone HCl [From Percocet] AdvReac Intermediate NAUSEAA Verified 05/24/17 16: 26 VOMITING ropinirole HCl [From Requip] AdvReac Intermediate VOMITING Verified 05/24/17 16: 26 diphenhydramine HCl AdvReac ITCHING Verified 05/24/17 16:26 [From Benadryl] ketorolac tromethamine AdvReac ?ITCHING Verified 05/24/17 16:26 [From Toradol] metoclopramide HCl AdvReac ? ITCHING Verified 05/24/17 16:26 [From Reglan] Past Medical History - heen HEENT History: Denies History Additional HEENT History: RECURRING SINUS INFECTIONS Cardiovascular History: Denies History Respiratory History: Asthma, Home Oxygen Use Gastrointestinal History: Gallbladder Disease, Gallbladder Disease Genitourinary History: Kidney Stones Endocrine History: Denies History Musculoskeletal History: Back Pain Prosthesis or Implant: No Additional Musculoskeletal History: RESTLESS LEG Neurological History: Migraines, Motion Sickness Additional Neurological History: CONCUSSION (10/27&10/30), RESTLESS LEG SYNDROME Blood Disorders: Denies History Psychiatric History: Depression, Anxiety Disorders History of Sexually Transmitted Diseases: No Female Reproductive History: Hysterectomy Cancer History: Denies History In Past Year Been Physically Harmed or Verbally Threatened: No History of MDRO: No History of Other Communicable Diseases: Yes (MONO IN 2014) Tobacco Use: Never Smoker Alcohol Use: Rarely Substance Use Type: None Previous Surgical History: Yes Type / Date of Surgery: c section, left shoulder, LEFT CARPAL TUNNEL, RIGHT KNEE / KHLOE/ Anesthesia Reactions: No (PONV) Malignant Hyperthermia: No Significant Family History: Asthma Past Medical History Reviewed: Reviewed - No Changes ROS - Limitations ROS Limitations: No Limitations Constitution: DENIES: Chills, Fever Cardiovascular: REPORTS: Denies Cardiac Symptoms Respiratory: REPORTS: Denies Resp Symptoms Neurological: REPORTS: Headache, Dizziness (Lightheaded). DENIES: Confusion, Numbness, Weakness Gastrointestinal: REPORTS: Nausea, Vomitting. DENIES: Abdominal Pain Musculoskeletal: REPORTS: Denies MS Symptoms Eyes: REPORTS: Other (Eyes are sensitive to the light) ENT: DENIES: Denies Symptoms Skin: DENIES: Rash Headache Exam - General Appearance General Appearance: POSITIVE: Alert, Cooperative, No Acute Distress, Other (She does have her eyes covered with a pillow) - HEENT Head / Face: POSITIVE: No Facial Swelling Eyes: POSITIVE: Inspection Normal Ears: POSITIVE: Ears Normal Inspection Nose: POSITIVE: Inspection Normal Oropharynx: POSITIVE: External Inspection Nml, Airway Intact, Voice Normal, Dry Mucous Membranes - Neck Neck: POSITIVE: Normal Inspection. NEGATIVE: Lymphadenopathy - Respiratory / CVS Respiratory / CVS: POSITIVE: No Respiratory Distress, Heart Sounds Normal, Regular Rate/Rhythm, Breath Sounds Normal Peripheral Pulses: Dorsalis-pedis (R): 2+, Dorsalis-pedis (L): 2+ - Abdomen Abdomen: Soft: (All Quadrants), Denies Tenderness: (All Quadrants), No Distention: (All Quadrants) - Skin Skin: POSITIVE: Intact - Extremities Extremity: Normal ROM: (All Extremities), Normal Inspection: (All Extremities) - Neuro / Psych Higher Functions: POSITIVE: Alert, Oriented x3, Normal Speech Cranial Nerves: POSITIVE: Normal As Tested Sensorimotor: POSITIVE: No Motor Deficits, No Sensory Deficits Headache Progress - Results Reviewed by me Lab Results Reviewed: Yes Lab Results:: Laboratory Results 05/24/17 Range/Units 16:40 WBC 6.77 (4.8-10.8) 10^3/uL RBC 5.09 (4.20-5.40) 10^6/uL Hgb 15.0 (12.0-16.0) g/dL Hct 44.9 (37.0-47.0) % MCV 88.2 (81-99) FL MCH 29.5 (27-31) PG MCHC 33.4 (33-37) g/dL RDW Std Deviation 43.3 (39-50) fL RDW Coeff of [place] 13.6 (11.5-14.5) % Plt Count 233 (140-350) 10*3/uL MPV 9.6 (7.4-12.2) FL Immature Gran % (Auto) 0.4 (0-5) % Neut % (Auto) 52.6 (50-80) % Lymph % (Auto) 35.9 (10-50) % [place] % (Auto) 6.6 (5-15) % Eos % (Auto) 1.5 (0-8) % Baso % (Auto) 3.0 H (0-1) % Immature Gran # (Auto) 0.03 10*3/UL Neut # (Auto) 3.56 10*3/UL Lymph # (Auto) 2.43 10*3/uL [place] # (Auto) 0.45 (0.3-0.8) 10*3/UL Eos # (Auto) 0.10 10*3/UL Baso # (Auto) 0.20 10*3/UL WBC Morphology Comment Normal morphology (NORM) Plt Morphology Comment Normal morphology (NORM) RBC Morph Comment Normal morphology (NORM) Sodium 138 (135-145) meq/L Potassium 3.8 (3.8-5.2) meq/L Chloride 107 (98-112) meq/L Carbon Dioxide 22 L (23-33) meq/L Anion Gap 9 (5-20) BUN 18 (7-22) mg/dL Creatinine 0.9 (0.50-1.20) mg/dL Estimated GFR > 60 (>60 ml/min/1.73m(2)) BUN/Creatinine Ratio 20.00 (6-20) Glucose 92 (78-110) mg/dL Calculated Osmolality 287.0 (267-292) mOsm/kg Calcium 8.7 (8.7-10.7) mg/dL C-Reactive Protein 0.8 (0.0-0.9) mg/dL - Patient's Progress MDM / ED Course: An IV was established and she was given 1 L bolus of normal saline as well as Zofran 8 mg IV, Decadron 10 mg IV and fentanyl 100 g IV. After initial medications the patient's nausea improved significantly. Her pain level had come down only to an 8 out of 10. She received a second dose of fentanyl with only minimal relief. She subsequently received [place] 7.5/325 2 by mouth after which her pain was improving significantly. She'll be discharged home. She was given a prescription for Zofran as needed for nausea as well as Allison as needed for pain. She will return to the emergency room if any worsening or change in symptoms. She is awaiting results of the sleep study test and has follow-up later this week with Dr. Aguilar. - Consult Counseled: POSITIVE: Patient, Family, RE: Lab Results, RE: DX, RE: Need for F/U Patient Care Time - Estimated PCT Patient Care Time (In Minutes): 25 Vital Signs - Recent Vital Signs Vital Signs: Vital Signs (Last 8 hours) Temp Pulse Resp BP Pulse Ox 05/24/17 16:32 96.4 F L 90 18 143/119 98 - VS Reviewed Vital Signs Reviewed: Yes Discharge Clinical Impression: Headache Discharge Disposition: Discharged to Home Condition: Stable Prescriptions / Orders: HYDROcodone/APAP 5/325 Tab [Allison 5/325 Tab] 1 each PO Q6H PRN #15 tablet PRN Reason: Pain Ondansetron Odt [Zofran Odt] 8 mg PO Q6H PRN #15 tab.rapdis PRN Reason: Nausea / Vomiting Patient Instructions Given at Discharge: Acute Headache (ED) Additional Instructions: Rest and push fluids. Zofran 8 mg every 6 hours as needed for nausea/vomiting. Allison 7.5/325 one every 6 hours as needed for pain. Return to the emergency room if worsening headache, vomiting or dehydration, any worsening or change in symptoms. Follow-up with primary care this week. Follow Up With: SHOLA AGUILAR [Primary Care Provider] -
[2017-05-24] MEDS ORDERED: HYDROcodone-APAP 7.5 MG-325 MG TABLET PO ONE (17:37)
== END 2017-05-24 18:43 | disposition home or self-care (01) ==
LOC: ER 16:10
DX: G43.009 Migraine without aura, not intractable, without status migrainosus (principal); R11.2 Nausea with vomiting, unspecified; R42 Dizziness and giddiness
CPT/HCPCS: 80048; 85025; 86140; 96361; 96374; 96375; 96376; 99282; 99283; J3010; J1100; J2405; J7030

== ENCOUNTER 2017-07-03 12:17 | Emergency (ER) | payer BC ==
[2017-07-03] MEDS ORDERED: methylPREDNISolone 125 MG/2 ML VIAL IVP ONE (12:29)
[2017-07-03] MEDS ORDERED: Famotidine Inj 20 MG in Normal Saline Flush 10 ML IVP ONE (12:30)
[2017-07-03] MEDS ORDERED: Sodium Chloride 0.9% 1,000 ML PRIMARY IV ONE (12:32)
[2017-07-03] MEDS ORDERED: IPRATROPIUM/ALBUTEROL SULFATE 3 ML NEB NEB ONE (12:41)
--- NOTE | 2017-07-03 12:44 | PDOC ---
General Adult HPI - General Chief Complaint: Allergic Reaction/Anaphylaxis Stated Complaint: ALLERGIC RX Date Seen by Provider: 07/03/17 Time Seen by Provider: 12:30 Source: POSITIVE: Patient Exam Limitations: POSITIVE: No limitations Nurse's Notes Reviewed & Considered: Yes - History of Present Illness Initial Comment: The patient is a 46-year-old female who is brought to the emergency department by ambulance after she was stung by a bee. She has a known history of allergic reactions to bee stings. She was outside and was stung on her right inner upper arm. She was having significant difficulty breathing and wheezing. EMS was called and when they arrived the patient appeared to be in respiratory distress. She is allergic to Benadryl. She was given a dose of epinephrine via EpiPen as well as a DuoNeb in route. By the time she arrives here she is breathing significantly better and oxygen saturations are in the high 90s on room air. She still has some soreness at the location of the sting site on her right upper arm. Have you received a tetanus shot in the past 10 years?: Yes - Patient Home Medications Home Medications: Home Medications Albuterol/Ipratrop Neb Soln [Duoneb Neb Soln] 1 vial NEB Q4-6HRSPRN #1 box 08/29 Pramipexole Di-HCl [Mirapex] 2 tab PO QHS #60 tab 10/01/16 Amitriptyline HCl 1 tab PO QHS #30 tab 10/14/16 Gabapentin 3 cap PO QHS #90 cap 10/14/16 Levocetirizine Dihydrochloride [Xyzal] 5 mg ORAL QD #30 tab 10/14/16 Estradiol 1 tab PO DAILY #30 tab 02/03/17 Albuterol Sulfate [Ventolin Hfa] 1 - 2 puff INH Q4-6H PRN #1 puff 03/11/17 Hydrocodone/Acetaminophen [[place] 7.5-325 Tablet] 1 - 2 each PO Q6H PRN #10 tablet 03/12/17 Albuterol Sulfate 1 unit NEB [id number] #1 box 04/09/17 Paroxetine HCl 40 mg PO DAILY #30 tab 04/14/17 Tramadol HCl 1 - 2 tab PO Q6H PRN #130 tab 07/02/17 Verapamil HCl 240 mg PO DAILY #30 tab 07/02/17 Epinephrine [Epipen 2-Prasanna] 0.3 mg IM ONCE PRN #1 pkg 07/03/17 methylPREDNISolone Dose Pack [Medrol Dose Pack] 1 each PO ASDIR #1 pkg 07/03/17 - Patient Allergies Allergies/Adverse Reactions: Allergies Allergy/AdvReac Type Severity Reaction Status Date / Time hydromorphone HCl Allergy SHORTNESS Verified 07/03/17 12:34 [From Dilaudid] OF BREATH codeine [Codeine] AdvReac Intermediate NAUSEA Verified 07/03/17 12:34 levofloxacin AdvReac Intermediate VOMITING Verified 07/03/17 12:34 ropinirole HCl [From Requip] AdvReac Intermediate VOMITING Verified 07/03/17 12: 34 diphenhydramine HCl AdvReac ITCHING Verified 07/03/17 12:34 [From Benadryl] metoclopramide HCl AdvReac ? ITCHING Verified 07/03/17 12:34 [From Reglan] Past Medical History - heen HEENT History: Denies History Additional HEENT History: RECURRING SINUS INFECTIONS Cardiovascular History: Denies History Respiratory History: Asthma, Home Oxygen Use Gastrointestinal History: Gallbladder Disease, Gallbladder Disease Genitourinary History: Kidney Stones Endocrine History: Denies History Musculoskeletal History: Back Pain Prosthesis or Implant: No Additional Musculoskeletal History: RESTLESS LEG Neurological History: Migraines, Motion Sickness Additional Neurological History: CONCUSSION (10/27&10/30), RESTLESS LEG SYNDROME Blood Disorders: Denies History Psychiatric History: Depression, Anxiety Disorders History of Sexually Transmitted Diseases: No Cancer History: Denies History History of MDRO: No History of Other Communicable Diseases: Yes (MONO IN 2013) Alcohol Use: Rarely Substance Use Type: None Previous Surgical History: Yes Type / Date of Surgery: c section, left shoulder, LEFT CARPAL TUNNEL, RIGHT KNEE / KHLOE/ Anesthesia Reactions: No (PONV) Malignant Hyperthermia: No Significant Family History: Asthma Past Medical History Reviewed: Reviewed - No Changes ROS - Limitations ROS Limitations: No Limitations Constitution: DENIES: Chills, Fever Cardiovascular: REPORTS: Denies Cardiac Symptoms Respiratory: REPORTS: Denies Resp Symptoms Neurological: REPORTS: Denies Neuro Symptoms Gastrointestinal: REPORTS: Denies GI Symptoms Musculoskeletal: REPORTS: Denies MS Symptoms Genitourinary: REPORTS: Denies Symptoms Eyes: REPORTS: Denies Symptoms ENT: REPORTS: Denies Symptoms Skin: DENIES: Rash General Adult Exam - General Appearance General Appearance: POSITIVE: Alert, Cooperative, No Acute Distress, Anxious - HEENT HEENT: POSITIVE: Head Inspection Nml, Eyes Inspection Nml, Ears Inspection Nml, Nose Inspection Nml, Pharynx Inspect. Nml - Neck Neck: POSITIVE: Normal Inspection. NEGATIVE: Lymphadenopathy - Respiratory Respiratory: POSITIVE: No Respiratory Distress, Breath Sounds Normal - Cardiovascular Cardiovascular: POSITIVE: Regular Rate & Rhythm, No Murmur Peripheral Pulses: Dorsalis-pedis (R): 2+, Dorsalis-pedis (L): 2+ - Abdomen Abdomen: Soft: (All Quadrants), Denies Tenderness: (All Quadrants), No Distention: (All Quadrants) - Skin Skin: POSITIVE: Normal Color, No Rash - Extremities Extremity: Normal ROM: (All Extremities), Normal Inspection: (All Extremities) - Neurological / Psychological Neurological: POSITIVE: Oriented X3, Motor Normal, Sensation Normal General Adult Progress - Patient's Progress MDM / ED Course: The patient was given Solu-Medrol 125 mg IV as well as Pepcid 20 mg IV. She started to have some increased wheezing and difficulty breathing and was given a second DuoNeb. She also received a second dose of IM epinephrine 0.3 mg. Symptoms improved however she did have some increased tremor from the epinephrine. She received Ativan 1 mg IV. She was monitored for quite sometime in the emergency room. She was weaned off of nasal cannula oxygen and was maintaining her oxygen saturations. She started to have some increased scratchiness in her throat and was given albuterol neb treatment as well as by mouth Claritin. She has some continued complaints of scratchiness in her throat however vital signs are stable and she has been monitored for a significant length of time here in the emergency room without any deterioration. She is considered stable for discharge home. She was prescribed a Medrol Dosepak and was advised to continue Zyrtec or Claritin as needed for itching or allergy symptoms. She also has an albuterol inhaler that she can use as needed. She was given a prescription for an EpiPen to be used in the future if any recurrent severe allergic reaction. She is advised return to the emergency room if she develops increased difficulty breathing, worsening or change in symptoms. - Consult Counseled: POSITIVE: Patient, RE: DX, RE: Need for F/U Patient Care Time - Estimated PCT Patient Care Time (In Minutes): 45 Vital Signs - VS Reviewed Vital Signs Reviewed: Yes (written nursing documentation reviewed) Discharge Clinical Impression: Allergic reaction to bee sting Discharge Disposition: Discharged to Home Condition: Stable Prescriptions / Orders: Epinephrine [Epipen 2-Prasanna] 0.3 mg IM ONCE PRN #1 pkg PRN Reason: Allergic Reaction methylPREDNISolone Dose Pack [Medrol Dose Pack] 1 each PO ASDIR #1 pkg Patient Instructions Given at Discharge: Insect Bite or Sting (ED), General Allergic Reaction (ED) Additional Instructions: Start Medrol Dosepak in the morning as per package instructions which is a steroid. Recommend Claritin or Zyrtec every 8-12 hours as needed for itching or allergy symptoms. Until albuterol inhaler as needed. You've also been prescribed an EpiPen which can be used as needed for severe reactions in the future. Return to the emergency room if increased difficulty breathing, worsening or change in symptoms. Follow Up With: NONE,NONE [Primary Care Provider] -
[2017-07-03] MEDS ORDERED: EPINEPHrine 1:10,000 (0.1 MG/ML) 1 MG/10 ML SYR ONE (12:47)
[2017-07-03] MEDS ORDERED: EPINEPHrine Inj (1:1,000) 1 mg/ml amp ONE (12:48)
[2017-07-03] MEDS ORDERED: EPINEPHrine 0.3 MG/0.3 ML AUTO-INJECTOR IM ONE (12:50)
[2017-07-03] MEDS ORDERED: EPINEPHrine 1:10,000 (0.1 MG/ML) 1 MG/10 ML SYR IM ONE (12:52)
[2017-07-03] MEDS ORDERED: LORazepam 2 MG/1 ML VIAL IVP ONE (12:54)
[2017-07-03] MEDS ORDERED: ALBUTEROL SULFATE 2.5 MG/3 ML NEB ONE (15:01)
[2017-07-03] MEDS ORDERED: LORATADINE 10 MG TABLET PO ONE (15:08)
[2017-07-03 16:42] VITALS: RESP 16; TEMP 98.4
== END 2017-07-03 16:28 | disposition home or self-care (01) ==
LOC: ER 12:17
DX: T63.441A Toxic effect of venom of bees, accidental (unintentional), initial encounter (principal); R06.00 Dyspnea, unspecified; R06.2 Wheezing
CPT/HCPCS: 94640; 96372; 96374; 96375; 99283 ×2; J0171 ×2; J2060; J2930; J7620; S0028; J7030

== ENCOUNTER 2017-07-07 08:38 | Emergency (ER) | payer BC ==
[2017-07-07 08:50] VITALS: RESP 18; TEMP 96.7
--- NOTE | 2017-07-07 09:06 | DI ---
LEFT HAND, 07/07/2017 8:48 AM: Clinical History: Kicked in the left hand by a horse. Previous Exam: None at this facility. 3 views are submitted. There is no acute soft tissue, osseous, or joint abnormality. On the oblique v iew, there is a bony density at the articular surfaces between the trapezium and the first metacarpal bone consistent with prior injury. Reading: There is no acute fracture or dislocation.
--- NOTE | 2017-07-07 09:44 | PDOC ---
Upper Extremity Problem HPI - General Chief Complaint: Upper Extremity Problem/Injury Stated Complaint: KICKED IN LEFT HAND/THUMB BY [facility] Date Seen by Provider: 07/07/17 Time Seen by Provider: 08:45 Source: POSITIVE: Patient - History of Present Illness Initial Comments: Patient is a very nice 46-year-old woman who presents to the emergency department with 2 separate complaints. First while she just got kicked in the left hand by a horse and she has substantial pain in the thenar eminence and the first finger and the lateral portion of her hand. She also has low-grade pain in her wrist. She has movement of all of her fingers and all of all of her hand though. Her second issue is an area of erythema in the right upper extremity on the inner arm up near the axilla where she had a be staying about 4 days ago and this was getting better but now is starting to have expanding redness warmth and erythema and tenderness. - Patient Home Medications Home Medications: Home Medications Albuterol/Ipratrop Neb Soln [Duoneb Neb Soln] 1 vial NEB Q4-6HRSPRN #1 box 08/29 Pramipexole Di-HCl [Mirapex] 2 tab PO QHS #60 tab 10/01/16 Amitriptyline HCl 1 tab PO QHS #30 tab 10/14/16 Gabapentin 3 cap PO QHS #90 cap 10/14/16 Levocetirizine Dihydrochloride [Xyzal] 5 mg ORAL QD #30 tab 10/14/16 Estradiol 1 tab PO DAILY #30 tab 02/03/17 Albuterol Sulfate [Ventolin Hfa] 1 - 2 puff INH Q4-6H PRN #1 puff 03/11/17 Hydrocodone/Acetaminophen [[place] 7.5-325 Tablet] 1 - 2 each PO Q6H PRN #10 tablet 03/12/17 Albuterol Sulfate 1 unit NEB [id number] #1 box 04/09/17 Paroxetine HCl 40 mg PO DAILY #30 tab 04/14/17 Tramadol HCl 1 - 2 tab PO Q6H PRN #130 tab 07/02/17 Verapamil HCl 240 mg PO DAILY #30 tab 07/02/17 Epinephrine [Epipen 2-Prasanna] 0.3 mg IM ONCE PRN #1 pkg 07/03/17 methylPREDNISolone Dose Pack [Medrol Dose Pack] 1 each PO ASDIR #1 pkg 07/03/17 Cephalexin [Keflex] 500 mg PO Q6H #30 cap 07/07/17 - Patient Allergies Allergies/Adverse Reactions: Allergies Allergy/AdvReac Type Severity Reaction Status Date / Time bee venom protein (honey bee) Allergy Anaphylaxis Verified 07/07/17 08:41 hydromorphone HCl Allergy SHORTNESS Verified 07/07/17 08:41 [From Dilaudid] OF BREATH codeine [Codeine] AdvReac Intermediate NAUSEA Verified 07/07/17 08:41 levofloxacin AdvReac Intermediate VOMITING Verified 07/07/17 08:41 ropinirole HCl [From Requip] AdvReac Intermediate VOMITING Verified 07/07/17 08: 41 diphenhydramine HCl AdvReac ITCHING Verified 07/07/17 08:41 [From Benadryl] metoclopramide HCl AdvReac ? ITCHING Verified 07/07/17 08:41 [From Reglan] Past Medical History - heen HEENT History: Denies History Additional HEENT History: RECURRING SINUS INFECTIONS Cardiovascular History: Denies History Respiratory History: Asthma, Home Oxygen Use Gastrointestinal History: Gallbladder Disease, Gallbladder Disease Genitourinary History: Kidney Stones Endocrine History: Denies History Musculoskeletal History: Back Pain Prosthesis or Implant: No Additional Musculoskeletal History: RESTLESS LEG Neurological History: Migraines, Motion Sickness Additional Neurological History: CONCUSSION (10/27&10/30), RESTLESS LEG SYNDROME Blood Disorders: Denies History Psychiatric History: Depression, Anxiety Disorders History of Sexually Transmitted Diseases: No Female Reproductive History: Hysterectomy Obstetrical History: Denies History Cancer History: Denies History In Past Year Been Physically Harmed or Verbally Threatened: No History of MDRO: No History of Other Communicable Diseases: Yes (MONO IN 2014) Tobacco Use: Never Smoker Alcohol Use: Rarely Substance Use Type: None Previous Surgical History: Yes Type / Date of Surgery: c section, left shoulder, LEFT CARPAL TUNNEL, RIGHT KNEE / KHLOE/ Anesthesia Reactions: No (PONV) Malignant Hyperthermia: No Significant Family History: Asthma Past Medical History Reviewed: Reviewed - No Changes ROS - Limitations ROS Limitations: No Limitations Constitution: REPORTS: Denies Symptoms Cardiovascular: REPORTS: Denies Cardiac Symptoms Respiratory: REPORTS: Denies Resp Symptoms Upper Extremity Problem Exam - General Appearance General Appearance: POSITIVE: Alert, Cooperative, No Acute Distress - Upper Extremity Upper Extremity: POSITIVE: Other (Right upper extremity shows a approximately 2 inch in radius circular erythematous patch that is warm and appears to be cellulitic. The left upper extremity shows a handle it is mildly swollen around the thenar eminence and the first finger movement intact distal neurovascular function all intact mild tenderness at the wrist.) Upper Ext Problem Progress - Results Reviewed by me Xrays/CTs/US Reviewed by me: Yes Radiology Findings: No acute fractures noted - Patient's Progress MDM / ED Course: In regards to patient's cellulitis status post bee sting I will place her on Keflex 500 4 times a day do that for a week if this is not getting better she knows to return for antibiotic coverage change she is already on some antihistamines and oral steroids for this staying. In regards to the contusions and hand trauma I think medical assistant ob gyn take her for a little while to get better. We put her in a gutter splint to help offer her some stability and compression and I've encouraged her to follow-up with orthopedics if it's not getting better fairly expeditiously and also to consider physical therapy to return her to full function as soon as possible. She also knows to keep it elevated and rested it ice it use compression try some anti-inflammatories for discomfort and watch it closely. Patient Care Time - Estimated PCT Patient Care Time (In Minutes): 15 Vital Signs - Recent Vital Signs Vital Signs: Vital Signs (Last 8 hours) Temp Pulse Resp BP Pulse Ox 07/07/17 08:39 96.7 F L 73 18 143/89 97 - VS Reviewed Vital Signs Reviewed: Yes Discharge Clinical Impression: Contusion Qualifiers: Encounter type: initial encounter Contusion area: hand Laterality: left Qualifier Code: (S60.222A) Contusion of left hand, initial encounter Cellulitis Qualifiers: Site of cellulitis: extremity Site of cellulitis of extremity: upper extremity Laterality: right Qualifier Code: (L03.113) Cellulitis of right upper limb Discharge Disposition: Discharged to Home Condition: Stable Prescriptions / Orders: Cephalexin [Keflex] 500 mg PO Q6H #30 cap Patient Instructions Given at Discharge: Cellulitis (ED), Contusion in Adults ( ED) Additional Instructions: Monitor your hand symptoms and if you are worsening instead of getting better please be seen by orthopedics Monitor your cellulitis on your arm and if not improving be seen by primary care provider Consider physical therapy for rehabilitation of your hand Rest ice elevation compression and anti-inflammatories for the contusion in your hand for the next few days. Follow Up With: SHOLA SANTANA [Primary Care Provider] -
== END 2017-07-07 09:41 | disposition home or self-care (01) ==
LOC: ER 08:38
DX: S60.222A Contusion of left hand, initial encounter (principal); L03.113 Cellulitis of right upper limb; M25.532 Pain in left wrist; W55.12XA Struck by horse, initial encounter
CPT/HCPCS: 29125; 73130; 99282; 99283